=== PATIENT | female | born 1990 | race Caucasian/White ===

== ENCOUNTER 2024-12-25 08:48 | Outpatient (AMB) | payer OTHER, SELFPAY ==
--- NOTE | 2024-12-25 08:50 | A.OFFVIS_ITS ---
Intake Visit Reasons: 6m Allergies diphenhydramine (From Benadryl) Allergy (Unknown, Verified 12/25/24 08:51) Unknown sumatriptan (From Imitrex) Allergy (Unknown, Verified 12/25/24 08:51) Unknown Medication List - Last Reconciled 12/25/24 by Carina Moreno CNP rzlaysxfxa-ruucylnwqmwfa-dqwq 50-325-40 mg 2 tabs PO DAILY PRN naproxen 500 mg PO BID ondansetron mg PO semaglutide (weight loss) (Wegovy) 1 mg subcut QWEEK tranexamic acid 650 mg PO DAILY HPI Comments Details: 34-year-old woman with migraine without aura. She was doing okay. She was getting about 2-3 migraines/month. She was taking butalbital as needed which helped. Sleep was so-so. [facility] Medical History (Updated 12/25/24 @ 08:53 by Carina Moreno CNP) Anxiety Ulnar neuropathy at elbow of right upper extremity Migraine with aura Surgical History (Updated 12/24/24 @ 09:52 by Carina Moreno CNP) S/P cubital tunnel release S/P carpal tunnel release Review of Systems Const Denies chills, Denies daytime sleepiness, Denies difficulty sleeping, Denies fatigue, Denies fever(s), Denies frequent falls, Reports headache(s), Denies increased appetite, Denies poor appetite, Denies snoring, Denies weakness, Denies weight gain and Denies weight loss Eyes Denies loss of vision ENT Denies vertigo, Denies dizziness and Reports headache(s) Card Denies chest pain at rest, Denies chest pain with activity, Denies syncope, Denies leg edema and Denies palpitations Resp Denies snoring GI Denies constipation, Denies heartburn, Denies diarrhea and Denies nausea Denies urinary frequency, Denies urinary incontinence and Denies urinary urgency Musc Denies abnormal gait, Denies numbness and Denies tingling Skin/Breast Denies dry skin and Denies rash Neuro Denies abnormal gait, Denies vertigo, Denies dizziness, Denies syncope, Denies frequent falls, Reports headache(s), Denies lack of coordination, Denies loss of vision, Denies memory loss, Denies numbness, Denies restless legs, Denies seizure-like activity, Denies tingling, Denies paresthesias, Denies tremor(s) and Denies weakness Psych Denies anxiety, Denies depression, Denies auditory hallucinations, Denies memory loss, Denies visual hallucinations and Denies suicidal ideation Endo Denies fatigue and Denies palpitations Physical Exam Const Other: General Appearance:? normal, in no acute distress. Skin:? no rashes, no significant birthmarks. Heart:? S1, S2 normal, no murmurs. Lungs:? clear anteriorly and posteriorly. Extremities:? no edema. Psych:? alert, oriented, cognitive function intact, cooperative with exam. Neuro Other: Mental Status:?Normal attention, orientation, memory and affect.? Cranial Nerves:?Pupils are equal, round and reactive to light. External occular muscles are intact. Visual greenberg are full. Face is symmetrical. Facial sensations are normal. Tongue is midline. Palate elevates symmetrically. Shoulder shrugging is normal. Hearing to bedside conversation is normal. Sensory Exam:?....? Coordination:?No ataxia,?no titubation.? Gait Exam: Within normal limits.? Extrapyramidal System:?No tremor, rigidity with normal facial expressions.? Pronator Drift:?Not present.? Involuntary Movements:?No tremors seen.? Speech:?Normal.? Assessment & Plan Assessment & Plan (1) Migraine without aura: Code(s): G43.009 - Migraine without aura, not intractable, without status migrainosus Category: Medical Qualifiers: Status migrainosus presence: without status migrainosus Intractability: not intractable Qualified Code(s): G43.009 - Migraine without aura, not intractable, without status migrainosus Plan: Continue wnowkmucom-APMB-yaqr 50-325-40mg 2 tablets as needed for headache #10 for 30 days. Plan Meds tried: Imitrex, butalbital, Nurtec (made headaches worse) Coding Level of Care Code Est Pt Level 3 (00307) Diagnoses Migraine without aura and without status migrainosus, not intractable G43.009 Status migrainosus presence: without status migrainosus Intractability: not intractable
--- OUTSIDE RECORDS SUMMARY | 2024-12-25 09:15 | XMS_ITS | Patient Health Record ---
Author Organization [facility] Address [address] [place] [address] Care Team Providers Care Media Executive Name Role Phone JESENIA BLUE Unavailable [phone] Allergies Allergen (clinical drug ingredient) Drug/Non Drug Allergy documented on EMR Reaction Allergy Type Onset Date Status diphenhydramine Benadryl Unknown Drug Allergy A ctive sumatriptan SUMAtriptan Unknown Drug Allergy Act brain meningococcal group B vaccine Meningococcal Group B Vaccine Unknown Drug Allergy Active Reason For Referral No Information Medications Medication SIG (Take, Route, Frequency, Duration) Notes Start Date End Date Status Mounjaro 5 MG/0.5ML 5mg Subcutaneous wee kly; Duration: 30 days 09/30/2022 Active Metoclopramide HCl 5 MG TAKE ONE TABLET BY MOUTH EVERY DAY BEFORE MEALS NEEDED FOR NAUSEA AND VOMITING Oral; Duration: 10 Active Fluconazole 150 MG TAKE 1 TABLET BY STACY TH ONCE A WEEK FOR 12 DOSES Oral; Duration: 28 Active Wegovy 1.7 MG/0.75ML inject 1.7mg Subcut aneous once a week; Duration: 30 days 10/04/2022 Active Mounjaro 2.5 MG/0.5ML 2.5mg Subcutaneous weekly; Duration: 30 days Active Ondansetron 4 MG 1 tablet on the tong ue and allow to dissolve prn nausea Orally Once a day; Duration: 30 day(s) Active Grwpysycwj-EHFH-Ompjtojt 50-325-40 MG TAKE 2 TABLETS BY MOUTH DAILY NEEDED FOR HEADACHE Oral; Duration: 3 Active Cetirizine HCl 10 MG 1 capsule Orally On ce a day Active Social History Tobacco Use: Social History Observation Description Date Details (start date - stop date) Never Smoker NA - NA Tobacco Use/Smoking Question Answer Notes Are you a nonsmoker Alcohol Screen (Audit-C) Question Answer Notes Did you have a drink contain ing alcohol in the past year? Yes How often did you have a dri nk containing alcohol in the past year? Monthly or less (1 point) Points 1 Interpretation Negative Problems Problem Type SNOMED Code ICD Code Onset Dates Problem Status W/U Status Risk Notes Problem Obesity due to excess calories (207868092) Other obesity due to excess calories (E66.09) Active confirmed Problem Body mass index 35.00 to 39.99 ([id number] 05) Body mass index [BMI] 37.0-37.9, adult (Z68.37) Active confirmed Plan Of Treatment No Information Insurance Providers Payer Name Payer Address Payer Phone Subscriber Number Group Number Insured Name Patient Relationship to Insured Coverage Start Date Coverage End Date [employer] [address] [address] [place] [address] [id number] [phone] Silvia Leone Self - patient is the insured Medical (General) History Medical History History ICD Code hypercholesterolemia headache weight gain Surgical History Surgery Date(Month/Year) wisdom teeth extraction vertebroplasty
--- OUTSIDE RECORDS SUMMARY | 2024-12-25 09:16 | XMS_ITS | Clinical Summary ---
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 Medications butalbital-acetami nophen-caffeine 50-300-40 mg capsule Take by mouth. Active LORazepam (ATIVAN) 0.5 mg tablet Take 1 tablet (0.5 mg total) by mouth if needed for anxiety. 4 Active ondansetron (ZOFRAN) 4 mg tablet Take 1-2 Tablets by mouth every 8 hours as needed for Nausea 30 tablet 4 5 Active semaglutide (Wegovy) 1.7 mg/0.75 mL injection penIndications:His tory of obesity Inject 1.7 mg under the skin every 7 (seven) days. 3 mL 5 5 Active ondansetron ODT (ZOFRAN-ODT) 4 mg disintegrating tablet Take 1 tablet (4 mg total) by mouth every 8 (eight) hours if needed for nausea. 30 tablet 4 5 Active naproxen (Naprosyn) 500 mg tablet Take 1 tablet (500 mg total) by mouth 2 (two) times a day if needed for moderate pain. 60 tablet 3 5 09/21/19 26 Active tranexamic acid (Lysteda) 650 mg tablet tablet Take 1 tablet (650 mg total) by mouth 1 (one) time each day. During week of menses 60 tablet 1 5 Active semaglutide (Wegovy) 1 mg/0.5 mL injection penIndications:Cla ss 2 obesity Inject 1 mg under the skin every 7 (seven) days. 2 mL 1 5 Active diclofenac (VOLTAREN) 1 % topical gel Apply 2 g topically 4 (four) times a day if needed (pain). Massage into area QID as needed for pain. Dispense 1 tube. 1 each 1 5 Active Hospital, Clinic, or Other Facility Administered Medication Ordered Dose Route Frequency Start Date End Date Status sodium chloride 0.9 % bolus 1,000 mLIndications:Dehydration 1000 mL IV Once 09/04/2024 Active Active Problems Problem Noted Date Diagnosed Date Macromastia 12/13/2024 Chronic neck and back pain 12/13/2024 Intertrigo 12/13/2024 History of compression fracture of spine 025 Irritable bowel syndrome 08/29/2020 Polyp of gallbladder 10/10/2019 L1 vertebral fracture ([facility] V24, [facility] V28) 08/21/2018 Overview (12/20/2023): Kyphoplasty 05/23/18 Snoring 05/06/2016 Overview (12/20/2023): Home sleep study 04/29/2016 did not show sleep apnea or desats. Chronic headache 10/13/2012 Anxiety 06/22/2012 Overview (12/20/2023): No counseling in the past Neuropathy 06/22/2012 Overview (12/20/2023): Dr. 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; consider type II or in a patient of this age type I 12/24/16 - status post vasovagal event 11/24/16, EEG and MRI normal; migraines, Inderal 60 mg, Fioricet Resolved Problems Problem Noted Date Diagnosed Date Resolved Date Carpal tunnel syndrome, right upper limb 12/26/2023 07/02/2024 Obesity 12/02/2017 07/02/2024 Encounters Date Type Department Care Team Description 12/13/2024 11:00 AM EDT Consult Plastic & Reconstructive Surgery [facility] [address] [address] [place] [id number] Lois Short PA Macromastia (Primary Dx); Chronic neck and back pain; Intertrigo 11/21/2024 3:45 PM EDT Consult [facility] [address] [place] [phone] Aissatou Francisco MD Mastalgia (Primary Dx); Ptosis of both breasts; Weight loss 11/15/2024 11:00 AM EDT Treatment Outpatient [address] [phone] Bea Millan, FORTUNE TELLER Upper back pain (Primary Dx); Neck pain; Chronic bilateral low back pain without sciatica; Large breasts; Chronic pain of both shoulders; Closed fracture of first lumbar vertebra, unspecified fracture morphology, sequela; History of compression fracture of spine 11/13/2024 11:00 AM EDT Treatment Outpatient [facility] - [address] [phone] Bea Millan, FORTUNE TELLER Upper back pain (Primary Dx); Neck pain; Chronic bilateral low back pain without sciatica; Large breasts; Chronic pain of both shoulders 11/09/2024 10:00 AM EDT Treatment Outpatient [address] [phone] Bea Millan, FORTUNE TELLER Upper back pain (Primary Dx); Neck pain; Chronic bilateral low back pain without sciatica; Large breasts; Chronic pain of both shoulders 11/07/2024 3:00 PM EDT Treatment Outpatient [address] [phone] Bea Millan, FORTUNE TELLER Upper back pain (Primary Dx); Neck pain; Chronic bilateral low back pain without sciatica; Large breasts; Chronic pain of both shoulders; Closed fracture of first lumbar vertebra, unspecified fracture morphology, sequela; History of compression fracture of spine 11/02/2024 10:00 AM EDT Treatment Outpatient [address] [phone] Bea Millan, FORTUNE TELLER Upper back pain (Primary Dx); Neck pain; Chronic bilateral low back pain without sciatica; Large breasts; Chronic pain of both shoulders 10/31/2024 2:30 PM EDT Treatment Outpatient [address] [phone] Bea Millan, FORTUNE TELLER Upper back pain (Primary Dx); Neck pain; Chronic bilateral low back pain without sciatica; Large breasts; Chronic pain of both shoulders; Closed fracture of first lumbar vertebra, unspecified fracture morphology, sequela; History of compression fracture of spine 10/29/2024 8:00 AM EDT Ancillary Procedure [facility] - [facility] [address] [facility] [place] [address] [place] [phone] Vasovagal near-syncope; Orthostatic hypotension; Dizziness 10/26/2024 1:30 PM EDT Evaluation Outpatient [facility] - [address] [phone] Carl Martinez, MERCEDEZ Upper back pain; Neck pain; Chronic bilateral low back pain without sciatica; Chronic pain of both shoulders; Closed fracture of first lumbar vertebra, unspecified fracture morphology, sequela; History of compression fracture of spine; Large breasts 10/26/2024 Plan of Care Documentation Outpatient Rehabilitation - [address] [phone] 10/02/2024 3:00 PM EDT - 10/02/2024 11:59 PM EDT Hospital Encounter Radiology Department - [address] [phone] Breast pain, left Discharge Disposition: Home or Self Care 10/02/2024 3:00 PM EDT - 10/02/2024 11:59 PM EDT Hospital Encounter Radiology Department - [address] [phone] Breast pain, left Discharge Disposition: Home or Self Care 10/02/2024 Telephone Adult [address] [phone] Elena Chun MD 10/01/2024 2:45 PM EDT - 10/01/2024 11:59 PM EDT Hospital Encounter Xray - [address] [phone] Chronic bilateral low back pain without sciatica; Closed fracture of first lumbar vertebra, unspecified fracture morphology, sequela; History of compression fracture of spine Discharge Disposition: Home or Self Care 10/01/2024 12:45 PM EDT Office Visit Adult [address] [phone] Nancy Rodriguez PA Breast pain, left (Primary Dx); Large breasts; Upper back pain; Neck pain; Chronic pain of both shoulders; Chronic bilateral low back pain without sciatica; Closed fracture of first lumbar vertebra, unspecified fracture morphology, sequela; History of compression fracture of spine; Vasovagal near-syncope; Orthostatic hypotension; Dizziness from Last 3 Months Immunizations Immunization Administration Dates Next Due Hep B, Unspecified 08/21/2012 Influenza Quadravalent, MDCK , 0.5ml, preservative free (Flucelvax) 6mo and older 12/09/2022,11/03/2021,04/27/2021 Influenza trivalent, 0.5mL, preservative free (Fluarix; FluLaval; Fluzone) ages 6mo and older (Afluria) 3 years and older 03/14/2014 Influenza trivalent, with pr eservative (Fluzone; Afluria) 6mo and older 03/14/2014 JOHNOh My Green!/[employer] SARS-CoV-2 COVID -19, vector-nr, rS-Ad26, preservative free 06/30/2020,06/09/2020 Measles 08/21/2012 Meningococcal MCV4P 03/20/2014 Mumps 08/21/2012 PPD Test 03/20/2014 Pfizer SARS-CoV-2 COVID-19, mRNA, LNP-S, preservative free 06/30/2020,06/09/2020 Rubella 08/21/2012 Tdap Tetanus diptheria acell ular pertussis (Boostrix; Adacel) 7yo and older 02/22/2020,08/21/2012 Varicella live (Varivax) 12mo and older 09/20/19 13,08/22/2012 Zoster Live 08/21/2012 Surgical History Surgery Date Site/Laterality Comments WISDOM TOOTH EXTRACTION PROCEDURE: HISTORICAL WISDOM TEETH EXTRACTION OTHER SURGICAL HISTORY 05/23/2018 PROCEDURE: ---- OTHER ----; COMMENT: Vertebroplasty L1 FIXATION KYPHOPLASTY Medical History Medical History Date Comments Neuropathy 06/22/2012 DX:Neuropathy Anxiety 06/22/2012 DX:Anxiety L1 vertebral fracture (CMS/H CC V24, CMS/HCC V28) 08/21/2018 DX:L1 vertebral fracture (HC C); COMMENT: Kyphoplasty 05/23/18 Irritable bowel syndrome Joint pain Migraine Family History Medical History Relation Name Comments Hypertension Father Coronary artery disease Maternal Grandfather Stroke Paternal Grandfather Diabetes Neg Hx Other cancer Neg Hx Relation Name Status Comments Father Alive HTN Maternal Grandfather Mother Alive Healthy Paternal Grandfather Social History Tobacco Use Types Packs/Day Years Used Date Smoking Tobacco: Never Smokeless Tobacco: Never Tobacco Cessation:Counseling Given: Not Answered Alcohol Use Standard Drinks/Week Comments Yes 0 (1 standard drink = 0.6 oz pur e alcohol) social Interpersonal Safety Answer Date Record ed Physical Abuse Unrecognized value 02/10/2024 Verbal Abuse Unrecognized value 02/10/2024 Comments No Sex and Gender Information Value Date Recorded Sex Assigned at Female 02/06/2024 9:35 AM EST Legal Sex Female 6:26 PM EDT Gender Identity Female 02/06/2024 9:35 AM EST Sexual Orientation Straight 02/06/2024 9: 35 AM EST Obstetrics History Para Term AB IAB SAB Ectopic Multiple Livin g Live Births 0 0 0 0 Last Filed Vital Signs Vital Sign Reading Time Taken Comments Blood Pressure 120/82 12/13/2024 10:53 AM EDT Pulse 96 12/13/2024 10:53 AM EDT Temperature 36.4 C (97.6 F) 11/21/2024 3:53 PM EDT Respiratory Rate 20 09/04/2024 1:05 PM EDT Oxygen Saturation 100% 09/04/2024 1:05 PM EDT Inhaled Oxygen Concentration - - Weight 62.4 kg (137 lb 9.6 oz) 12/13/2024 10:53 AM EDT Height 158.8 cm (5' 2.5 ) 12/13/2024 10:53 AM ED T Body Mass Index 24.77 12/13/2024 10:53 AM EDT Plan of Treatment Scheduled Procedures Name Priority Associated Diagnoses Date/Ti me MAMMOPLASTY REDUCTION Macromastia Chronic neck and back pain Intertrigo Health Maintenance Due Date Last Done Comments Hepatitis B Vaccines (2 of 3 - 19+ 3-dose series) 09/18/2012 08/21/2012 HPV Vaccines (1 - 3-dose SCDM series) 2017 HIV Screening 08/16/2019 Hepatitis C Screening 08/16/2019 Social Influencers of Health Screening 08/16/2019 Depression Screening 02/22/2024 01/06/2023 COVID-19 Vaccine ( season) 2024 06/30/2020, 06/30/2020, 06/09/2020, Additional history exists Influenza Vaccine (#1) 2024 3, 11/03/2021, 04/27/2021, Additional history exists Cervical Cancer Screening: HPV 11/13/2025 11/13/2020 Cholesterol Screening (Lipid Panel) 07/04/2029 07/04/2024, 08/05/2022 DTaP,Tdap,and Td Vaccines (3 - Td or Tdap) 02/21/2030 02/22/2020, 08/21/2012 RSV Immunization Adult Patients (1 - 1-dose 75+ series) 2065 Varicella Vaccines Aged Out 09/19/2012, 08/22/2012 No longer eligible based on patient's age to complete this topic Meningococcal ACWY Vaccine Aged Out 03/20/2014 N o longer eligible based on patient's age to complete this topic HIB Vaccines Aged Out No longer eligi ble based on patient's age to complete this topic Hepatitis A Vaccines Aged Out No long er eligible based on patient's age to complete this topic IPV Vaccines Aged Out No longer eligi ble based on patient's age to complete this topic MMR Vaccines Aged Out No longer eligi ble based on patient's age to complete this topic Meningococcal B Vaccine Aged Out No l onger eligible based on patient's age to complete this topic Pneumococcal Vaccine: Pediatrics (0 to 5 Years) and At-Risk Patients (6 to 49 Years) Aged Out No longer eligible based on patient's age to complete this topic RSV Immunization Patients Under 20 months Aged Out No longer eligible based on patient's age to complete this topic Goals Goal Patient Goal Type Associated Problems Recent Progress Patient-Stated? Author Autogenerat ed Goal Care Plan Autogenerated Problem No Lois Short PA Procedures Procedure Name Priority Date/Time Associated Diagnosis Comments CARDIAC HOLTER MONITOR (REPORT GENERATED IN HOUSE) Routine 10/29/2024 8:05 AM EDT Vasovagal near-syncope Orthostatic hypotension Dizziness US BREAST LIMITED LEFT Routine 10/02/2024 3:28 PM EDT Breast pain, left MG MAMMO DIGITAL DIAGNOSTIC W ABDOULAYE BILAT Routine 10/02/2024 3:16 PM EDT Breast pain, left XR LUMBAR SPINE 4+ VIEWS Routine 10/01/2024 3:02 PM EDT Chronic bilateral low back pain without sciatica Closed fracture of first lumbar vertebra, unspecified fracture morphology, sequela History of compression fracture of spine LIPID PANEL WITH REFLEX TO DIRECT LDL Routine 07/04/2024 8:14 AM EDT History of obesity Mixed hyperlipidemia DEPRESSION SCREENING Routine 01/06/2023 HPV Routine 11/13/2020 from Last 3 Months or Most Recently Relevant to Health Maintenance Results * CARDIAC HOLTER MONITOR (REPORT GENERATED IN HOUSE) (10/29/2024 8:05 AM EDT) Anatomical Region Laterality Modality Cardiac Diagnost ic Narrative 10/30/2024 2:53 PM EDT [facility] DIAGNOSTIC TESTING DEPARTMENT [address] [place] [id number] TEL: FAX: Type of test: 24 hour Holter Monitor Date of test: 10/29/24 Ordering provider: DANNY Tarango Reason for Test: Syncope, Dizziness [facility] Findings: 1: Normal Sinus Rhythm with periods of Sinus Tachycardia. 2: Heart rate range was 71- 138 bpm with an average of 92 bpm. Total time in Sinus Tachycardia was 5 hrs 51 mins. 3: One PAC. No PVCs. 4: No pauses noted. Longest R-R 1.0 sec, 5: Diary returned with episodes of palpitations, lightheadedness, and dizziness noted. EKG at those times showed Sinus Tachycardia at 103- 119 bpm. There was also one episode of palpitations, lightheadedness, and dizziness at 6:30 am with the patient noting felt like I was going to have a vaso vagal attack . EKG at that time showed Normal Sinus Rhythm at 83 bpm. Impression: Normal sinus rhythm with a borderline elevated average heart rate of 92 bpm. No significant arrhythmias and no bradycardia or pauses. Patient's symptoms generally corresponded to sinus tachycardia. us Nancy DELGADO [facility] PROCED URES Final Result * US Breast Limited Left (10/02/2024 3:28 PM EDT) Anatomical Region Laterality Modality Breast Left Ultrasound 10/02/2024 3:19 PM EDT Impressions 10/02/2024 3:41 PM EDT 1. No mammographic evidence of malignancy 2. Heterogeneously dense Findings and recommendations were conveyed to the patient. BI-RADS CATEGORY: 2 - BENIGN RECOMMENDATION: Return to annual mammography. Return to annual mammography. Mammo Location: [facility], [address] [place] [address], [phone], . -------- FINAL REPORT -------- Dictated By: Julito Arce Dictated Date: 10/02/2024 15:19 ET Assigned Physician: Julito Arce Reviewed and Electronically Signed By: Julito Arce Signed Date: 10/02/2024 15:41 ET Workstation ID: [id number] Transcribed By: Self Edit Transcribed Date: 10/02/2024 15:22 ET Narrative 10/02/2024 3:41 PM EDT BILATERALDIGITAL DIAGNOSTIC 3D MAMMOGRAPHY HISTORY: Workup for upper outer left breast pain and workup for lower inner middle depth focal asymmetry seen on today's mammogram. Patient is 33 years old COMPARISON: Baseline Technique: Bilateral CC and MLO full field views. FINDINGS: Left: Lower inner middle depth focal asymmetry corresponds sonographically to typically benign cluster of microcysts. No focal abnormality in area of clinical concern Right: No suspicious masses, microcalcifications or areas of architectural distortion. Typically benign parenchymal asymmetries. BREAST DENSITY: C - The breasts are heterogeneously dense which may obscure small masses. EXAM: LEFT BREAST TARGETED ULTRASOUND EVALUATION HISTORY: Workup for upper outer left breast pain and lower inner focal asymmetry seen on today's mammogram TECHNIQUE: Ultrasonographic examination is performed using a linear array transducer. Targeted left breast ultrasound 12:00 to 3:00 and 9:00 to evaluate mammographic finding. Real-time sonographic scanning was also performed by the radiologist FINDINGS: From 12:00 to 3:00, no sonographic evidence of malignancy or other focal abnormalities were identified at the left breast in area of clinical pain At 9:00, there is a thin-walled typically benign anechoic cluster of microcysts measuring 1.3 x 0.6 x 0.9 cm which corresponds to mammographic finding Procedure Note Julito Arce MD - 10/02/2024 BILATERALDIGITAL DIAGNOSTIC 3D MAMMOGRAPHY HISTORY: Workup for upper outer left breast pain and workup for lowerinner middle depth focal asymmetry seen on today's mammogram. Patient is33 years old COMPARISON: Baseline Technique: Bilateral CC and MLO full field views. FINDINGS: Left: Lower inner middle depth focal asymmetry corresponds sonographically totypically benign cluster of microcysts. No focal abnormality in area of clinical concern Right: No suspicious masses, microcalcifications or areas of architecturaldistortion. Typically benign parenchymal asymmetries. BREAST DENSITY: C - The breasts are heterogeneously dense which mayobscure small masses. EXAM: LEFT BREAST TARGETED ULTRASOUND EVALUATION HISTORY: Workup for upper outer left breast pain and lower inner focalasymmetry seen on today's mammogram TECHNIQUE: Ultrasonographic examination is performed using a linear arraytransducer. Targeted left breast ultrasound 12:00 to 3:00 and 9:00 toevaluate mammographic finding. Real-time sonographic scanning was alsoperformed by the radiologist FINDINGS: From 12:00 to 3:00, no sonographic evidence of malignancy or other focalabnormalities were identified at the left breast in area of clinicalpain At 9:00, there is a thin-walled typically benign anechoic cluster ofmicrocysts measuring 1.3 x 0.6 x 0.9 cm which corresponds to mammographicfinding IMPRESSION: 1. No mammographic evidence of malignancy 2. Heterogeneously dense Findings and recommendations were conveyed to the patient. BI-RADS CATEGORY: 2 - BENIGN RECOMMENDATION: Return to annual mammography. Return to annual mammography. Mammo Location: [facility], [address] [place] [address], [phone], . -------- FINAL REPORT -------- Dictated By: Julito Arce Dictated Date: 10/02/2024 15:19 ET Assigned Physician: Julito Arce Reviewed and Electronically Signed By: Julito Arce Signed Date: 10/02/2024 15:41 ET Workstation ID: [id number] Transcribed By: Self Edit Transcribed Date: 10/02/2024 15:22 ET us Nancy DELGADO IMG US PROCEDURES Final Re sult * MG Mammo Digital Diagnostic w Abdoulaye bilat (10/02/2024 3:16 PM EDT) Anatomical Region Laterality Modality Breast Bilateral Mammography 10/02/2024 3:19 PM EDT Impressions 10/02/2024 3:41 PM EDT 1. No mammographic evidence of malignancy 2. Heterogeneously dense Findings and recommendations were conveyed to the patient. BI-RADS CATEGORY: 2 - BENIGN RECOMMENDATION: Return to annual mammography. Return to annual mammography. Mammo Location: [facility], [address] [place] [address], [phone], . -------- FINAL REPORT -------- Dictated By: Julito Arce Dictated Date: 10/02/2024 15:19 ET Assigned Physician: Julito Arce Reviewed and Electronically Signed By: Julito Arce Signed Date: 10/02/2024 15:41 ET Workstation ID: [id number] Transcribed By: Self Edit Transcribed Date: 10/02/2024 15:22 ET Narrative 10/02/2024 3:41 PM EDT BILATERALDIGITAL DIAGNOSTIC 3D MAMMOGRAPHY HISTORY: Workup for upper outer left breast pain and workup for lower inner middle depth focal asymmetry seen on today's mammogram. Patient is 33 years old COMPARISON: Baseline Technique: Bilateral CC and MLO full field views. FINDINGS: Left: Lower inner middle depth focal asymmetry corresponds sonographically to typically benign cluster of microcysts. No focal abnormality in area of clinical concern Right: No suspicious masses, microcalcifications or areas of architectural distortion. Typically benign parenchymal asymmetries. BREAST DENSITY: C - The breasts are heterogeneously dense which may obscure small masses. EXAM: LEFT BREAST TARGETED ULTRASOUND EVALUATION HISTORY: Workup for upper outer left breast pain and lower inner focal asymmetry seen on today's mammogram TECHNIQUE: Ultrasonographic examination is performed using a linear array transducer. Targeted left breast ultrasound 12:00 to 3:00 and 9:00 to evaluate mammographic finding. Real-time sonographic scanning was also performed by the radiologist FINDINGS: From 12:00 to 3:00, no sonographic evidence of malignancy or other focal abnormalities were identified at the left breast in area of clinical pain At 9:00, there is a thin-walled typically benign anechoic cluster of microcysts measuring 1.3 x 0.6 x 0.9 cm which corresponds to mammographic finding Procedure Note Julito Arce MD - 10/02/2024 BILATERALDIGITAL DIAGNOSTIC 3D MAMMOGRAPHY HISTORY: Workup for upper outer left breast pain and workup for lowerinner middle depth focal asymmetry seen on today's mammogram. Patient is33 years old COMPARISON: Baseline Technique: Bilateral CC and MLO full field views. FINDINGS: Left: Lower inner middle depth focal asymmetry corresponds sonographically totypically benign cluster of microcysts. No focal abnormality in area of clinical concern Right: No suspicious masses, microcalcifications or areas of architecturaldistortion. Typically benign parenchymal asymmetries. BREAST DENSITY: C - The breasts are heterogeneously dense which mayobscure small masses. EXAM: LEFT BREAST TARGETED ULTRASOUND EVALUATION HISTORY: Workup for upper outer left breast pain and lower inner focalasymmetry seen on today's mammogram TECHNIQUE: Ultrasonographic examination is performed using a linear arraytransducer. Targeted left breast ultrasound 12:00 to 3:00 and 9:00 toevaluate mammographic finding. Real-time sonographic scanning was alsoperformed by the radiologist FINDINGS: From 12:00 to 3:00, no sonographic evidence of malignancy or other focalabnormalities were identified at the left breast in area of clinicalpain At 9:00, there is a thin-walled typically benign anechoic cluster ofmicrocysts measuring 1.3 x 0.6 x 0.9 cm which corresponds to mammographicfinding IMPRESSION: 1. No mammographic evidence of malignancy 2. Heterogeneously dense Findings and recommendations were conveyed to the patient. BI-RADS CATEGORY: 2 - BENIGN RECOMMENDATION: Return to annual mammography. Return to annual mammography. Mammo Location: [facility], [address] [place] [address], [phone], . -------- FINAL REPORT -------- Dictated By: Julito Arce Dictated Date: 10/02/2024 15:19 ET Assigned Physician: Julito Arce Reviewed and Electronically Signed By: Julito Arce Signed Date: 10/02/2024 15:41 ET Workstation ID: [id number] Transcribed By: Self Edit Transcribed Date: 10/02/2024 15:22 ET us Nancy DELGADO IMG BI PROCEDURES Final Re sult * XR Lumbar Spine 4+ Views (10/01/2024 3:02 PM EDT) Anatomical Region Laterality Modality Spine, L-spine Radiographic Janie ging 10/02/2024 10:0 4 AM EDT Narrative 10/02/2024 10:06 AM EDT Lumbosacral spine, compression fracture of the L1. Pain. Comparison is prior examination from 12/12/2018. Again noted is some mild compression deformity of the L1 with evidence of vertebroplasty. It is unchanged. Other vertebral bodies are maintained in height. There are small discogenic osteophytes at L2-3 and L3-4 levels. There are hypertrophic changes in the facet joints at L4-5 and L5-S1 levels. There is no significant interval change. CONCLUSIONS: Mild compression deformity with evidence of vertebroplasty at L1 level. Degenerative changes as detailed. -------- FINAL REPORT -------- Dictated By: America Kaye Dictated Date: 10/02/2024 10:04 ET Assigned Physician: America Kaye Reviewed and Electronically Signed By: America Kaye Signed Date: 10/02/2024 10:06 ET Workstation ID: [id number] Transcribed By: Self Edit Transcribed Date: 10/02/2024 10:04 ET Procedure Note America Kaye MD - 10/02/2024 Lumbosacral spine, compression fracture of the L1. Pain. Comparison is prior examination from 12/12/2018. Again noted is some mild compression deformity of the L1 with evidence ofvertebroplasty. It is unchanged. Other vertebral bodies are maintained inheight. There are small discogenic osteophytes at L2-3 and L3-4 levels.There are hypertrophic changes in the facet joints at L4-5 and L5-H9mqxfma. There is no significant interval change. CONCLUSIONS: Mild compression deformity with evidence of vertebroplasty atL1 level. Degenerative changes as detailed. -------- FINAL REPORT -------- Dictated By: America Kaye Dictated Date: 10/02/2024 10:04 ET Assigned Physician: America Kaye Reviewed and Electronically Signed By: America Kaye Signed Date: 10/02/2024 10:06 ET Workstation ID: [id number] Transcribed By: Self Edit Transcribed Date: 10/02/2024 10:04 ET us Nancy DELGADO IMG XR PROCEDURES Final Re sult * (ABNORMAL) Lipid panel with reflex to direct LDL (07/04/2024 8:14 AM EDT) Cholesterol 190 0 - 200 mg/dL LAB CHEMISTRY METHOD 07/04/2024 11:20 AM EDT [facility] Triglycerides 92 0 - 150 mg/dL LAB CHEMISTRY METHOD 07/04/2024 11:20 AM EDT [facility] HDL 51 >=40 mg/dL LAB CHEMISTRY METHOD 07/04/2024 11:20 AM EDT [facility] LDL Calculated 121(H) 0 - 100 mg/dL LAB CHEMISTRY METHOD 07/04/2024 11:20 AM EDT [facility] VLDL Cholesterol Shan 18.4 mg/dL LAB CHEMISTRY METHOD 07/04/2024 11:20 AM EDT [facility] Non HDL Chol. (LDL+VLDL) 139 <145 mg/dL LAB CHEMISTRY METHOD 07/04/2024 11:20 AM EDT [facility] Chol/HDL Ratio 3.7 0.0 - 4.4 LAB CHEMISTRY METHOD 07/04/2024 11:20 AM EDT [facility] Blood Venous blood specimen / Unknown Venipuncture / Unknown 07/04/2024 8:14 AM EDT 07/04/2024 8:14 AM EDT us Carl DELGADO LAB BLOOD ORDERABLES Final Res ult [facility] [address] [place] [address], [place] [phone] * Depression Screening (01/06/2023) Depression Screening Abstracted Historical Provider HEALTH MAINTENANCE Final Result * Cervical Cancer Screening: HPV (11/13/2020) Cervical Cancer Screening: HPV No Interpretation , Abstracted Historical Provider HEALTH MAINTENANCE Final Result from Last 3 Months or Most Recently Relevant to Health Maintenance Additional Health Concerns Active Problems Noted Date Diagnosed Date Autogenerated Problem 12/17/2024 Insurance [employer] DOME[employer]IC Advance Directives * Full Code - Default (Latest Code Status on File) Date Activated Date Inactivated Comments 02/10/2024 7:47 AM 02/10/2024 1:30 PM This is or shantell is used when code status has not been discussed with the patient, or code status is otherwise unknown/unconfirmed To update the patient's code status, place a code status order. Do not modify or discontinue any currently active code status orders. Care Teams Machine Shop Worker Relationship Specialty Start Date End Date Elena Boyd MD [address] [place] [id number] PCP - General 01/06/22
--- OUTSIDE RECORDS SUMMARY | 2024-12-25 09:16 | XMS_ITS ---
Author Name [facility] Organization Unknown Care Team Organization Name Specialty Phone Email Start Date End Da te [facility] Diego Foster Primary Care 06/28/2022 10/10/19 [facility] NULL Primary Care 12/29/2021 10/10/2023
== END 2024-12-25 08:59 | disposition home or self-care (01) ==
LOC: HO.HSM 08:48
PROVIDERS: PCP Internal Medicine; Referring Provider Internal Medicine; Visit Provider Registered Nurse
DX: G43.009 Migraine without aura, not intractable, without status migrainosus (principal)
CPT/HCPCS: 99213

== ENCOUNTER 2025-01-04 10:18 | Outpatient (REF) | payer OTHER, SELFPAY | END 2025-01-04 10:19 | disposition home or self-care (01) | LOC: HO.HPHYSR 10:18 | PROVIDERS: PCP Internal Medicine; Visit Provider Physical Medicine & Rehabilitation | DX: M47.816 Spondylosis without myelopathy or radiculopathy, lumbar region (principal) | CPT/HCPCS: 64493; 64494; J2003; J3301; Q9967 ==

== ENCOUNTER 2025-01-04 10:18 | Outpatient (AMB) | payer OTHER, SELFPAY ==
[2025-01-04 10:24] VITALS: BP 123/77; TEMP 36.6; BMI 24.7
--- NOTE | 2025-01-04 10:24 | A.PHYSOV_ITS ---
Vital Signs 01/04/25 10:24 Height 5 ft 2 in Weight 135 lb BMI 24.7 BP 123/77 Temp 97.9 F Intake Visit Reasons: Bilateral Lumbar Facet Injection L4-L5 L5-S1 Intake Note: Patient is a 34 year old female in office today for Bilateral L4-5 and L5-S1 Facet Injections Allergies diphenhydramine (From Benadryl) Allergy (Unknown, Verified 01/04/25 10:22) Unknown sumatriptan (From Imitrex) Allergy (Unknown, Verified 01/04/25 10:22) Unknown [facility] Medical History (Updated 01/04/25 @ 10:25 by El Ritter DO) Spondylosis of lumbar region without myelopathy or radiculopathy Anxiety Ulnar neuropathy at elbow of right upper extremity Migraine with aura Surgical History (Updated 01/04/25 @ 10:34 by Susan Olmstead MA) History of kyphoplasty (~2018) S/P cubital tunnel release S/P carpal tunnel release Social History (Updated 01/04/25 @ 10:21 by Susan Olmstead MA) Household Members: None Alcohol intake: current Alcohol intake frequency: does not drink Patient Tobacco Use Status: Never used Tobacco Current occupational status: employed Office Procedures Procedure Details: Procedure performed: Bilateral L4-L5, L5-S1 facet joint injections Preop diagnosis: Lumbar facet arthropathy Postop diagnosis: The same After informed consent was obtained, patient was brought into the procedure room and placed in the prone position on the procedure table. Skin over the lumbar sacral area was prepped and draped in the usual sterile manner. The facet joints indicated above were visualized utilizing fluoroscopy. For each joint 3.5 inch 22 gauge spinal needle was introduced percutaneously and advanced to enter the joint space. Needle placement was verified utilizing 0.2 cc of Omnipaque contrast solution. Each joint received total 1.5 cc of therapeutic solution containing 20 mg of of triamcinolone and 2% lidocaine. Radiation exposure was recorded and documented in chart. 64646 Lumbar Facet Inj SINGLE Level- use with FL Gd order: [id number] - Bilateral 79614 Lumbar Facet Inj SECOND Level- use with FL Gd order: [id number] - Bilateral Procedure code (CPT) selection complete Office Meds Kenalog 40 mg/mL suspension for injection Performing Provider: El Ritter DO Performing Location: [facility] Administered by: El Ritter DO on 01/04/25 10:26 Dose Route Admin Location Dispensed Lot Number Expiration Date [facility] Transitional Living Specialist 80 mg intra-articular 2 mL [id number] [place] [facility] Total Dispensed Waste 2 mL 0 % lidocaine (PF) 20 mg/mL (2 %) injection solution Performing Provider: El Ritter DO Performing Location: [facility] Administered by: El Ritter DO on 01/04/25 10:26 Dose Route Admin Location Dispensed Lot Number Expiration Date [facility] Transitional Living Specialist 160 mg intra-articular 10 mL [id number] [facility] Total Dispensed Waste 10 mL 20 % Omnipaque 300 300 mg iodine/mL intravenous solution Performing Provider: lE Ritter DO Performing Location: [facility] Administered by: El Ritter DO on 01/04/25 10:26 Dose Route Admin Location Dispensed Lot Number Expiration Date [facility] Transitional Living Specialist 3 mL intra-articular 10 mL [id number] [place] Total Dispensed Waste 10 mL 70 % Assessment & Plan Assessment & Plan (1) Spondylosis of lumbar region without myelopathy or radiculopathy: Code(s): M47.816 - Spondylosis without myelopathy or radiculopathy, lumbar region Category: Medical Plan Bilateral L4-L5, L5-S1 facet joint injections were performed Orders: Orders FL Gd Lumbar Spine Facet Inj Today M47.816 - Spondylosis without myelopathy or radiculopathy, lumbar region AMB Lumbar Facet Injection Today M47.816 - Spondylosis without myelopathy or radiculopathy, lumbar region Coding Level of Care Code Procedure Only Diagnoses Spondylosis of lumbar region without myelopathy or radiculopathy M47.816 CPT Codes Lumbar Facet Injection - 60240 Thoracic Facet Inj CPT: 97948 - Bilateral ([id number]) Lumbar Facet Injection - 91255 Thoracic Facet Inj CPT: 75647 - Bilateral ([id number])
--- OUTSIDE RECORDS SUMMARY | 2025-01-04 13:05 | XMS_ITS | Clinical Summary ---
Author Organization Patient Business Ser [facility] Address [address] [place] [address] Care Team Providers Care Blend Plant Operator Name Role Phone Elena Boyd MD Primary [...] Polyp of gallbladder 10/10/2019 L1 vertebral fracture ([facility] V24, [facility] V28) 08/21/2018 Overview (12/20/2023): Kyphoplasty 05/23/18 Snoring [...] AM EDT Consult Plastic & Reconstructive Surgery [facility] [address] [facility] [address] [place] [phone] Lois Short PA Macromastia (Primary Dx); Chronic neck and back pain; Intertrigo 11/21/2024 3:45 PM EDT Consult Breast Care Center [facility] [address] [place] [phone] Aissatou Francisco MD Mastalgia (Primary Dx); Ptosis of both breasts; Weight loss 11/15/2024 11:00 AM EDT Treatment Outpatient [address] [phone] Bea Millan, ALPINE GUIDE Upper back pain (Primary Dx); Neck pain; Chronic bilateral low back pain without sciatica; Large breasts; Chronic pain of both shoulders; Closed fracture of first lumbar vertebra, unspecified fracture morphology, sequela; History of compression fracture of spine 11/13/2024 11:00 AM EDT Treatment Outpatient [facility] - [address] [phone] Bea Millan, ALPINE GUIDE Upper back pain (Primary Dx); Neck pain; Chronic bilateral low back pain without sciatica; Large breasts; Chronic pain of both shoulders 11/09/2024 10:00 AM EDT Treatment Outpatient [address] [phone] Bea Millan, ALPINE GUIDE Upper back pain (Primary Dx); Neck pain; Chronic bilateral low back pain without sciatica; Large breasts; Chronic pain of both shoulders 11/07/2024 3:00 PM EDT Treatment Outpatient [address] [phone] Bea Millan, ALPINE GUIDE Upper back pain (Primary Dx); Neck pain; Chronic bilateral low back pain without sciatica; Large breasts; Chronic pain of both shoulders; Closed fracture of first lumbar vertebra, unspecified fracture morphology, sequela; History of compression fracture of spine 11/02/2024 10:00 AM EDT Treatment Outpatient [address] [phone] Bea Millan, ALPINE GUIDE Upper back pain (Primary Dx); Neck pain; Chronic bilateral low back pain without sciatica; Large breasts; Chronic pain of both shoulders 10/31/2024 2:30 PM EDT Treatment Outpatient [address] [phone] Bea Millan, ALPINE GUIDE Upper back pain (Primary Dx); Neck pain; Chronic bilateral low back pain without sciatica; Large breasts; Chronic pain of both shoulders; Closed fracture of first lumbar vertebra, unspecified fracture morphology, sequela; History of compression fracture of spine 10/29/2024 8:00 AM EDT Ancillary Procedure [facility] [address] [facility] Ihsan [address] [place] [phone] Vasovagal near-syncope; Orthostatic hypotension; Dizziness 10/26/2024 1:30 PM EDT Evaluation Outpatient [facility] [address] [phone] Carl Martinez, MERCEDEZ Upper back pain; Neck pain; Chronic bilateral low back pain without sciatica; Chronic pain of both shoulders; Closed fracture of first lumbar vertebra, unspecified fracture morphology, sequela; History of compression fracture of spine; Large breasts 10/26/2024 Plan of Care Documentation Outpatient Rehabilitation - [address] [phone] from Last 3 Months Immunizations Immunization Administration Dates Next Due Hep B, Unspecified 08/21/2012 Influenza Quadravalent, MDCK , 0.5ml, preservative free (Flucelvax) 6mo and older 12/09/2022,11/03/2021,04/27/2021 Influenza trivalent, 0.5mL, preservative free (Fluarix; FluLaval; Fluzone) ages 6mo and older (Afluria) 3 years and older 03/14/2014 Influenza trivalent, with pr eservative (Fluzone; Afluria) 6mo and older 03/14/2014 [employer] SARS-CoV-2 COVID -19, vector-nr, rS-Ad26, preservative free 06/30/2020,06/09/2020 Measles 08/21/2012 Meningococcal MCV4P 03/20/2014 Mumps 08/21/2012 PPD Test 03/20/2014 [employer] SARS-CoV-2 COVID-19, mRNA, LNP-S, preservative free 06/30/2020,06/09/2020 [...] AM EDT Vasovagal near-syncope Orthostatic hypotension Dizziness LIPID PANEL WITH REFLEX TO DIRECT LDL Routine 07/04/2024 8:14 AM EDT History of obesity Mixed hyperlipidemia HM DEPRESSION SCREENING Routine 01/06/2023 HM HPV Routine 11/13/2020 from Last 3 Months or Most Recently Relevant to Health Maintenance Results * CARDIAC HOLTER MONITOR (REPORT GENERATED IN HOUSE) (10/29/2024 8:05 AM EDT) Anatomical Region Laterality Modality Cardiac Diagnost ic Narrative 10/30/2024 2:53 PM EDT [facility]PARTMENT [address] [facility], [address], [place] [address] TEL: FAX: Type of test: 24 hour Holter Monitor Date of test: 10/29/24 Ordering provider: DANNY Tarango Reason for Test: Syncope, Dizziness PVCA Data Abstractor Findings: 1: Normal Sinus Rhythm with periods [...] Patient's symptoms generally corresponded to sinus tachycardia. Nancy DELGADO CV CARDIAC SERVICES PROCED URES Final Result * (ABNORMAL) Lipid panel with reflex to [...] mg/dL LAB CHEMISTRY METHOD 07/04/2024 11:20 AM T [facility] Non HDL Chol. (LDL+VLDL) 139 <145 mg/dL LAB CHEMISTRY METHOD 07/04/2024 11:20 AM EDT [facility] Chol/HDL Ratio 3.7 0.0 - 4.4 LAB CHEMISTRY METHOD 07/04/2024 11:20 AM T [facility] Blood Venous blood specimen / Unknown Venipuncture / Unknown 07/04/2024 8:14 AM EDT 07/04/2024 8:14 AM EDT Carl DELGADO LAB BLOOD ORDERABLES Final Res ult [facility] [address] [place] [address], * Depression Screening (01/06/2023) [facility] Depression Screening Abstracted Historical Provider HEALTH MAINTENANCE Final Result * Cervical Cancer Screening: HPV (11/13/2020) [facility] Cervical Cancer Screening: HPV No Interpretation , [...] currently active code status orders. Care Teams Blend Plant Operator Relationship Specialty Start Date End Date Elena Boyd MD [address] [place] [id number] PCP - General 01/06/22
== END 2025-01-04 10:49 | disposition home or self-care (01) ==
LOC: HO.HPHYS 10:18
PROVIDERS: PCP Internal Medicine; Visit Provider Physical Medicine & Rehabilitation
DX: M47.816 Spondylosis without myelopathy or radiculopathy, lumbar region (principal)
CPT/HCPCS: 64493; 64494

== ENCOUNTER 2025-02-05 12:56 | Outpatient (AMB) | payer OTHER, SELFPAY ==
[2025-02-05 13:02] VITALS: BMI 24.7
--- NOTE | 2025-02-05 13:02 | A.PHYSOV ---
Vital Signs 02/05/25 13:02 Height 5 ft 2 in Weight 135 lb BMI 24.7 Intake Visit Reasons: F/U after injection 01/04/2025 Intake Note: Patient is a 34 year old female in office today for a follow up after Bilateral L4-L5, L5-S1 facet joint injections 01/04/25 Allergies diphenhydramine (From Benadryl) Allergy (Unknown, Verified 01/04/25 10:22) Unknown sumatriptan (From Imitrex) Allergy (Unknown, Verified 01/04/25 10:22) Unknown HPI Comments Details: History of Present Illness The patient is a 34 year old female presenting for a follow-up visit for chronic lower back pain after recent injections. She has a history of chronic lower back pain and previously received lower lumbar facet joint injections on March 07, 2019, which provided excellent benefit. More recently, she underwent bilateral L4-L5 and L5-S1 facet joint injections on January 04, 2025. She reports feeling amazing. She was able to travel to [place] and tolerate plane flight without significant aggravation of her lower back pain. She is very happy with the outcome of the procedure. A lumbar sacral spine MRI from January 01, 2019, revealed a small compression fracture at the L1 level but was otherwise unremarkable. A repeat lumbar sacral spine MRI on October 01, 2024, demonstrated mild degenerative changes in the facet joints. The patient has successfully lost over 100 pounds with the use of semaglutide and engages in daily physician-guided exercises. Since her latest injections, her back has been amazing with no pain, and she was able to do a lot of walking during a recent trip. Pain Description - Location: Lower back. - Current Status: The patient reports she is completely pain-free. - Relieving Factors: Reports excellent benefit and complete pain resolution following bilateral lumbar facet joint injections. Results - Lumbar sacral spine MRI (January 01, 2019): Revealed a small compression fracture at the L1 level and was otherwise unremarkable. - Lumbar sacral spine MRI (October 01, 2024): Showed mild degenerative changes in the facet joints but was otherwise noncontributory. [facility] Medical History Spondylosis of lumbar region without myelopathy or radiculopathy Anxiety Ulnar neuropathy at elbow of right upper extremity Migraine with aura Surgical History History of kyphoplasty (~2019) S/P cubital tunnel release S/P carpal tunnel release Social History Household Members: None Alcohol intake: current Alcohol intake frequency: does not drink Patient Tobacco Use Status: Never used Tobacco Current occupational status: employed Review of Systems Narrative Review of Systems - Musculoskeletal: Denies any current back pain. Denies change in bowel bladder habits. Denies any fever or chills. Denies uncontrolled depression or suicidal ideation Physical Exam Exam Exam: Physical Exam Patient appears to be in no acute distress. Appropriately conversant oriented. Ambulated without antalgia. Lumbar range of motion was preserved. She was able to perform heel walk and toe walk. Neurological examination was nonfocal. Vital Signs: BMI result Body Mass Index 24.7 Assessment & Plan Assessment & Plan (1) Spondylosis of lumbar region without myelopathy or radiculopathy: Code(s): M47.816 - Spondylosis without myelopathy or radiculopathy, lumbar region Category: Medical Plan Pain Management - Analgesia: The patient reports her pain is completely resolved following recent lumbar facet joint injections. - Activities of Daily Living: Function is excellent; she recently traveled and did a lot of walking without issue. - Adverse Effects: No adverse effects were reported from her treatments. - Affect: The patient reports feeling amazing and is very pleased with the outcome. - Aberrant Drug Related Behaviors: No aberrant behaviors were noted or discussed. Plan Patient was informed and verbally consented to the use of an ambient scribe for clinic note documentation during this visit. 1. Chronic Lower Back Pain The patient has had an excellent response to bilateral L4-L5 and L5-S1 facet joint injections, reporting complete resolution of her pain. Given her current pain-free status, no further interventions are required at this time. She is advised to continue with her daily exercises and turmeric supplementation. Follow-up will be on an as-needed basis if her pain returns. Discussion Notes I confirmed with the patient that her back pain has completely resolved since her recent injections, and she is feeling amazing. I informed her that no further treatment is necessary at this time. Regarding the duration of effect from the injections, I explained that achieving three months of relief is a good outcome, with any duration beyond that being a bonus. I expressed optimism that due to her younger age and the absence of severe arthritis, the relief may last for a significant time. I recommended she continue her daily exercises and turmeric. We will not schedule a routine follow-up; she will call if she needs another appointment. Patient Instructions - You are feeling much better and have no back pain after your recent injections. - Continue with your daily exercises and taking turmeric as discussed. - No follow-up appointment is needed at this time. - Please call our office if your back pain returns. Coding Level of Care Code Est Pt Level 3 (15932) Add On Problem Visit Only Diagnoses Spondylosis of lumbar region without myelopathy or radiculopathy M47.816
--- OUTSIDE RECORDS SUMMARY | 2025-02-05 16:50 | XMS_ITS | Encounter Summary ---
Author Organization [facility] Prior to 12/23/2023 Address [address] [place] [address] Care Team Providers Care Business Process Engineer Name Role Phone Piter Boyd MD Primary Care Provider [phone] Reason for Referral * EXTERNAL (Priority) - Authorized/Booked Specialty Diagnoses / Procedures Referred By Devika [email or web address] Referred To Contact Dermatology Procedures REFERRAL TO DERMATOLOGY Piter Boyd MD [address], [place] Patrice Savage MD [address] [place] [address] [place] [address] Referral ID Status Reason Start Date Expiration Date V isits Requested Visits Authorized [id number] Authorized/B ooked 02/10/2023 02/10/2024 1 1 Encounter Details Date Type Department Care Team Description 02/10/2023 Orders Only Adult Medicine - [place] [address], [place] [phone] Piter Boyd MD [address], [place] Social History Tobacco Use Types Packs/Day Years Used Date Smoking Tobacco: Never Smokeless Tobacco: Never Alcohol Use Standard Drinks/Week Comments Yes 0 (1 standard drink = 0.6 oz pur e alcohol) one on occ Sex Assigned at Date Recorded Not on file Job Start Date Occupation Industry Not on file Not on file Not on file documented as of this encounter Plan of Treatment Not on file documented as of this encounter Visit Diagnoses Not on filedocumented in this encounter Care Teams Business Process Engineer Relationship Specialty Start Date End Date Piter Boyd MD [address] [place] [id number] PCP - General Internal Medicine 01/06/22 documented as of this encounter
--- OUTSIDE RECORDS SUMMARY | 2025-02-05 16:50 | XMS_ITS | Encounter Summary ---
Author Organization [facility] Prior to 12/23/2023 Address [address] [place] [address] Care Team Providers Care Flavoring Machine Operator Name Role Pipe Line WalkerBenitez Loo MD Primary Care Provider Gris Vora MD Primary Care Provider Verna Boyce MD Primary Care Provider Aries Boyd Ch MD Primary Care Provider [phone] Encounter Details Date Type Department Care Team Description 11/29/2016 [facility] Medical Records [address] [place] [id number] Rojas Garcia MD Social History Tobacco Use Types Packs/Day Years [...] on filedocumented in this encounter Care Teams Flavoring Machine Operator Relationship Specialty Start Date End Date Benitez Loo MD PCP - General Internal Medicine 06/13/12 11/08/19 Gris Castillo MD PCP - General Internal Medicine 11/09/19 1 Verna Joseph MD PCP - General Family Practice 01/26/21 01/05/22 Piter Boyd MD [address] [place] [address] PCP - General Internal Medicine 01/06/22 documented as of this encounter
--- OUTSIDE RECORDS SUMMARY | 2025-02-05 16:50 | XMS_ITS | Clinical Summary ---
Author Organization [facility] Prior to 12/23/2023 Address [address] [place] [address] Care Team Providers Care Set Designer Name Role Phone Piter Boyd MD Primary Care Provider [phone] [phone] Allergies Active Allergy Reactions Severity Noted Date Comments Benadryl Allergy Rash/Dermatitis Medium 08/09/2016 Sumatriptan Succinate Numbness, tingling or swelling of the lips, tongue or mouth High 10/06/2012 Also chest pain and palpitations. Meningococcal Vaccines Rash/Dermatitis 03/22/19 15 Medications Medication Sig Dispensed Refills Start Date End Date Status [id number] E 50-300-40 MG OR CAPS 50-300-40 MG Cap Take by mouth. 0 Acti ve Fluticasone Furoate-Vilanterol (Breo Ellipta) 100-25 MCG/ACT AEROSOL POWDER,BREATH ACTIVATED Inhale 1 Puff into the lungs daily. 1 Each 0 04/27/2023 Active ALBUTEROL SULFATE (ProAir HFA) 108 (90 Base) MCG/ACT Aero Soln Inhale 2 Puffs into the lungs 4 times daily as needed for Cough or Wheezing. 8.5 g 2 04/27/2023 Active fluconazole (DIFLUCAN) 150 MG tablet TAKE ONE TABLET ONE DOSE. MAY REPEAT ONCE 0 04/27/2023 Active lorazepam (Ativan) 0.5 MG tablet Take 1 Tablet by mouth every 6 hours as needed for Anxiety for up to 7 days. 20 Tablet 0 09/19/2023 Active ondansetron (Zofran) 4 MG tablet Take 1-2 Tablets by mouth every 8 hours as needed for Nausea. 30 Tablet 1 10/17/2023 Active Semaglutide-Weight Management 1 MG/0.5ML Solution Auto-injector Inject 1 mg into the skin once a week. 2 mL 3 12/13/2023 Active ondansetron (ZOFRAN-ODT) 4 MG disintegrating tablet Take 1 Tablet by mouth every 8 hours as needed for Nausea. 30 Tablet 3 12/13/2023 Active Active Problems Problem Noted Date Class 2 obesity 03/16/2021 Irritable bowel syndrome 08/29/2020 Polyp of gallbladder 10/10/2019 L1 vertebral fracture 08/21/2018 Overview: Kyphoplasty 05/23/18 Obesity 12/02/2017 Snoring 05/06/2016 Overview: Home sleep study 04/29/2016 did not show sleep apnea or desats. Chronic headache 10/13/2012 Neuropathy 06/22/2012 Overview: Dr. 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; consider type II or in a patient of this age type I 12/24/16 - status post vasovagal event 11/24/16, EEG and MRI normal; migraines, Inderal 60 mg, Fioricet Anxiety 06/22/2012 Overview: No counseling in the past Immunizations Name Administration Dates Next Due COVID-19 (Pfizer) 06/30/2020,06/09/2020 Hepatitis N-Jehzu-Cbzcqhjm + 08/21/2012 Influenza (> 6 Months) 03/14/2014 Influenza Vaccine-preservati ve Free-quadrivalent 4 Years 11/03/2021 Zkdtcff-Gmnkf-Nzbroyfd + 08/21/2012 Meningococcal (Menactra) 03/20/2014 Jjjlo-Lzsnk-Lppeikoe + 08/21/2012 PPD-RBMG 03/20/2014 Zukpilq-Jcfit-Vlvkopva + 08/21/2012 Tdap 02/22/2020,08/21/2012 Varicella 09/19/2012,08/22/2012 Varicella Titre Negative - 08/21/2012 Family History Medical History Relation Name Comments Hypertension Father CAD Maternal Grandfather Stroke Paternal Grandfather Cancer, Other Negative Hx Diabetes Negative Hx Relation Name Status Comments Father Alive [...] file Not on file Not on file Last Filed Vital Signs Vital Sign Reading Time Taken Comments Blood Pressure 108/82 09/19/2023 11:22 AM EDT Pulse 81 09/19/2023 11:22 AM EDT Temperature 36.2 C (97.1 F) 09/19/2023 11:22 AM EDT Respiratory Rate 16 11/03/2021 1:38 PM EDT Oxygen Saturation 98% 09/26/2020 3:05 PM EDT Inhaled Oxygen Concentration - - Weight 76.7 kg (169 lb) 12/22/2023 9:32 AM EDT Height 157.5 cm (5' 2 ) 12/22/2023 9:32 AM EDT Body Mass Index 30.91 12/22/2023 9:32 AM EDT Plan of Treatment Health Maintenance Due Date Last Done Comments CERVICAL CANCER SCREENING 11/14/20232020, 03/24/2016 (External Completion of test per patient (Patient reports normal results)), 03/24/2011 (External Completion of test per patient (Patient reports normal results)) BMI CHECK/ADVISE 02/22/2024 09/19/2023, 11/2023, 05/30/2023, Additional history exists DEPRESSION SCREENING/FOLLOWUP 02/22/2024 (Completed), 04/21/2021, 10/13/2020, Additional history exists SOCIAL NEEDS SCREENING 02/22/2024 01/07/2023 (Comple alyson) Covid-19 Vaccine (2022- 4 season) 2024 06/30/2020, 06/09/2020 INFLUENZA (#1) 2024 11/03/2021, 03/14/2014 CHOLESTEROL SCREENING 08/06/2027 08/05/2022 , 01/07/2022, 04/30/2019, Additional history exists BASELINE HEALTH EXAM 18-39 01/08/202801/07, 01/07/2022, 01/06/2022, Additional history exists DTAP/TDAP/TD (3 - Td or Tdap) 02/21/2030 02/22/2020, 08/21/2012 PNEUMOCOCCAL VACCINE FOR HIG H RISK PATIENTS (#1) 11/24/2055 Care Teams Set Designer Relationship Specialty Start Date End Date Piter Boyd, [address] [place] [address] PCP - General Internal Medicine 01/06/22
--- OUTSIDE RECORDS SUMMARY | 2025-02-05 16:50 | XMS_ITS | Encounter Summary ---
Author Organization [facility] Prior to 12/23/2023 Address [address] [place] [address] Care Team Providers Care Solution Design Engineer Name Role Inventory ClerkBenitez Loo MD Primary Care Provider Gris Vora MD Primary Care Provider Verna Boyce MD Primary Care Provider Aries Boyd Ch MD Primary Care Provider [phone] [phone] Encounter Details Date Type Department Care Team Description 02/27/2014 Release of Information Medical Records [address] [place] [id number] Abstract, Provider Social History Tobacco Use Types Packs/Day Years Used Date Smoking Tobacco: Never Alcohol Use Standard Drinks/Week Comments Yes 0 (1 standard drink = 0.6 oz pur e alcohol) Sex Assigned at Date Recorded Not on file Job Start Date Occupation Industry Not on file Not on file Not on file documented as of this encounter Plan of Treatment Not on file documented as of this encounter Visit Diagnoses Not on filedocumented in this encounter Care Teams Solution Design Engineer Relationship Specialty Start Date End Date Benitez Loo MD PCP - General Internal Medicine 06/13/12 11/08/19 Gris Castillo MD PCP - General Internal Medicine 11/09/19 1 Verna Joseph MD PCP - General Family Practice 01/26/21 01/05/22 Piter Boyd MD [address] [place] [address] PCP - General Internal Medicine 01/06/22 documented as of this encounter
--- OUTSIDE RECORDS SUMMARY | 2025-02-05 16:50 | XMS_ITS | Encounter Summary ---
Author Organization [facility] Prior to 12/23/2023 Address [address] [place] [address] Care Team Providers Care Edge Burnisher Uppers Name Role Phone Gris Castillo MD Primary Care Provider Verna Boyce MD Primary Care Provider Aries Boyd Primary Care Provider [phone] Encounter Details Date Type Department Care Team Description 10/06/2020 Pt. Non Urgent Medical Question Medicine/Pediatrics - [address] [address] Gris Castillo MD Social History Tobacco Use Types Packs/Day Years Used Date Smoking Tobacco: Never Smokeless Tobacco: Never Alcohol Use Standard Drinks/Week Comments Yes 0 (1 standard drink = 0.6 oz pur e alcohol) one on occ Sex Assigned at Date Recorded Not on file Job Start Date Occupation Industry Not on file Not on file Not on file COVID-19 Exposure Response Date Recorded In the last month, have you been in contact with someone who was confirmed or suspected to have Coronavirus / COVID-19? No / Unsure 10/06/2020 8:10 AM EDT documented as of this encounter Miscellaneous Notes * Telephone Encounter - Anamaria Rivas M.A. - 10/06/2020 4:13 PM EDTFrom: Silvia Leone To: Daniel Castillo Sent: 10/06/2020 4:11 PM EDT Subject: Neurology Hello, i know I???m on a waiting list to see a new neurologist. I was looking through my previous medical records and i saw a neurologist in the past he was great. Only reason why i stopped seeing him was because of a change in insurance. I???m not sure if i can be able to see him. He???s in the [facility] [place] his name is Dr. Garcia. documented in this encounter Plan of Treatment Not on file documented as of this encounter Visit Diagnoses Not on filedocumented in this encounter Care Teams Edge Burnisher Uppers Relationship Specialty Start Date End Date Gris Castillo MD PCP - General Internal Medicine 11/09/19 1 Verna Joseph MD PCP - General Family Practice 01/26/21 01/05/22 Piter Boyd MD [facility] [place] [address] PCP - General Internal Medicine 01/06/22 documented as of this encounter
--- OUTSIDE RECORDS SUMMARY | 2025-02-05 16:50 | XMS_ITS | Encounter Summary ---
Author Organization [facility] Prior to 12/23/2023 Address [address] [place] [address] Care Team Providers Care Platen Drier Operator Name Role Phone Piter Boyd MD Primary Care Provider [phone] Encounter Details Date Type Department Care Team Description 09/27/2022 Orders Only Lab - [place] [address] [place], [place] [id number] Piter Boyd, [address] [place] [address] Diarrhea of presumed infectious origin (Primary Dx) Social History Tobacco Use Types Packs/Day Years [...] on file documented as of this encounter Results * CHG IAAD IA CLOSTRIDIUM DIFFICILE TOXIN (09/27/2022 9:33 AM EDT) Stool (Unknown) 09/27/2022 9 :33 AM EDT 09/27/2022 9:33 AM EDT Narrative [facility] - 09/27/2022 12:16 PM EDT Release to patient->Immediate C. DIFFICILE TOXIN PANEL NOT PERFORMED. SPECIMEN DOES NOT MEET CRITERIA FOR TESTING. REASON: FORMED SPECIMEN PLEASE CONTACT INFECTION CONTROL IF ADDITIONAL INFORMATION IS REQUIRED. C. DIFFICILE TOXIN PANEL NOT PERFORMED. SPECIMEN DOES NOT MEET CRITERIA FOR TESTING. REASON: FORMED SPECIMEN PLEASE CONTACT INFECTION CONTROL IF ADDITIONAL INFORMATION IS REQUIRED. TNP Piter Boyd MD LAB Performing Organization Address [facility] Co de Phone Number [facility] * GIARDIA AG, STOOL (09/27/2022 9:33 AM EDT) Stool (Unknown) 09/27/2022 9 :33 AM EDT 09/27/2022 9:33 AM EDT [facility]ative [facility] 09/27/2022 12:35 PM EDT Release to patient->Immediate NEGATIVE FOR GIARDIA LAMBLIA ANTIGEN Piter Boyd MD LAB Performing Organization Address [facility] de Phone Number [facility] documented in this encounter Visit Diagnoses Diagnosis Diarrhea of presumed infectious origin- Primary documented in this encounter Care Teams Platen Drier Operator Relationship Specialty Start Date End Date Piter Boyd MD [address] [place] [address] PCP - General Internal Medicine 01/06/22 documented as of this encounter
--- OUTSIDE RECORDS SUMMARY | 2025-02-05 16:50 | XMS_ITS | Encounter Summary ---
Author Organization [facility] Prior to 12/23/2023 Address [address] [place] [address] Care Team Providers Care Gaming Cage Cashier Name Role Phone Piter Boyd MD Primary Care Provider [phone] [phone] Encounter Details Date Type Department Care Team Description 04/27/2023 Orders Only Adult Medicine - [place] [address] [place] [address] Piter Boyd MD [address] [place] [address] Social History Tobacco Use Types Packs/Day Years [...] on filedocumented in this encounter Care Teams Gaming Cage Cashier Relationship Specialty Start Date End Date Piter Boyd MD [address] [place] [address] PCP - General Internal Medicine 01/06/22 documented as of this encounter
--- OUTSIDE RECORDS SUMMARY | 2025-02-05 16:50 | XMS_ITS | Encounter Summary ---
Author Organization [facility] Prior to 12/23/2023 Address [address] [place] [address] Care Team Providers Care Medical Care Evaluation Specialist Name Role Gold Miner BlastingBenitez Loo MD Primary Care Provider [facility] Maciel MD Primary Care Provider Verna Boyce MD Primary Care Provider Aries Boyd Ch MD Primary Care Provider [phone] [phone] Encounter Details Date Type Department Care Team Description 11/06/2018 Finisher Polisher Report Medical Records [address] [place] [address] [facility] Social History Tobacco Use Types Packs/Day Years [...] on filedocumented in this encounter Care Teams Medical Care Evaluation Specialist Relationship Specialty Start Date End Date Benitez Loo MD PCP - General Internal Medicine 06/13/12 11/08/19 Gris Castillo MD PCP - General Internal Medicine 11/09/19 1 Verna Joseph MD PCP - General Family Practice 01/26/21 01/05/22 Piter Boyd MD [address] [place] [address] PCP - General Internal Medicine 01/06/22 documented as of this encounter
--- OUTSIDE RECORDS SUMMARY | 2025-02-05 16:50 | XMS_ITS | Encounter Summary ---
Author Organization [facility] Prior to 12/23/2023 Address [address] [place] [address] Care Team Providers Care Gold Assayer Name Role Motorcoach DriverBenitez Loo MD Primary Care Provider Gris Vora MD Primary Care Provider Verna Boyce MD Primary Care Provider Aries Boyd Ch MD Primary Care Provider [phone] Encounter Details Date Type Department Care Team Description 12/24/2016 Treating And Pumping Supervisor Report Medical Records [address] [place] [address] Rojas Garcia MD Social History Tobacco Use [...] on filedocumented in this encounter Care Teams Gold Assayer Relationship Specialty Start Date End Date Benitez Loo MD PCP - General Internal Medicine 06/13/12 11/08/19 Gris Castillo MD PCP - General Internal Medicine 11/09/19 1 Verna Joseph MD PCP - General Family Practice 01/26/21 01/05/22 Piter Boyd, [address] [place] [address] [place] [address] PCP - General Internal Medicine 01/06/22 documented as of this encounter
--- OUTSIDE RECORDS SUMMARY | 2025-02-05 16:50 | XMS_ITS | Encounter Summary ---
Author Organization [facility] Prior to 12/23/2023 Address [address] [place] [address] Care Team Providers Care Senior Java Ui Developer Name Role Revenue Enforcement AgentBenitez Loo MD Primary Care Provider Gris Vora MD Primary Care Provider Verna Boyce MD Primary Care Provider Aries Boyd Ch MD Primary Care Provider [phone] [phone] Encounter Details Date Type Department Care Team Description 07/26/2016 Water Control Station Engineer Report Medical Records [address] [place] [address] Nicole Hassan Social History Tobacco Use Types Packs/Day Years [...] on filedocumented in this encounter Care Teams Senior Java Ui Developer Relationship Specialty Start Date End Date Benitez Loo MD PCP - General Internal Medicine 06/13/12 11/08/19 Gris Castillo MD PCP - General Internal Medicine 11/09/19 1 Verna Joseph MD PCP - General Family Practice 01/26/21 01/05/22 Piter Boyd MD [address] [place] [address] [place] [address] PCP - General Internal Medicine 01/06/22 documented as of this encounter"
--- OUTSIDE RECORDS SUMMARY | 2025-02-05 16:50 | XMS_ITS | Encounter Summary ---
Author Organization [facility] Prior to 12/23/2023 Address [address] [place] [address] Care Team Providers Care Automotive Product Engineer Name Role Phone Piter Boyd MD Primary Care Provider [phone] [phone] Reason for Visit * Reason Onset Date Comments medication problems 04/27/2023 [facility]ed [facility] [place] [place] Spoke to [place] [employer] and cancelled the Amoxicillin, Diflucan, and Albuterol, also the Breoelipa which is out of stock there anyway. Encounter Details Date Type Department Care Team Description 04/27/2023 Telephone Adult Medicine - [place] [address] [place] [address] Piter Boyd MD [address] [place] [address] medication problems ([facility]ed [facility] [place] [place] Spoke to [place] and cancelled the Amoxicillin, Diflucan, and Albuterol, also the Breoelipa which is out of stock there anyway.) Social History Tobacco Use Types Packs/Day Years [...] on filedocumented in this encounter Care Teams Automotive Product Engineer Relationship Specialty Start Date End Date Piter Boyd MD [address] [place] [address] PCP - General Internal Medicine 01/06/22 documented as of this encounter
--- OUTSIDE RECORDS SUMMARY | 2025-02-05 16:50 | XMS_ITS | Encounter Summary ---
Author Organization [facility] Prior to 12/23/2023 Address [address] [place] [address] Care Team Providers Care Real Estate Representative Name Role Phone Verna Joseph MD Primary Care Provider Aries Boyd Ch MD Primary Care Provider [phone] [phone] Reason for Visit * Reason Onset Date Comments Prior Authorization 12/09/2021 nystatin (MY COSTATIN) cream Encounter Details Date Type Department Care Team Description 12/09/2021 Telephone OBGYN - [place] [address] [place] [address] [place], [facility] [address] [place] [address] Prior Authorization (/nystatin (MYCOSTATIN) cream) Social History Tobacco Use Types Packs/Day Years [...] Exposure Response Date Recorded In the last 10 days, have yo u been in contact with someone who was confirmed or suspected to have Coronavirus/COVID-19? No / Unsure 11/17/2021 9:12 AM EDT documented as of this encounter Miscellaneous Notes * Telephone Encounter - Ava Benito M.A. - 01/29/2022 2:36 PM EST SEEN ON 01/06/22 WITH PROVIDER WITH NO FURTHER MENTION OF MED AUTH [email or web address] * Telephone Encounter - Lanny Doran M.A. - 12/15/2021 8:45 AM EDT Need to call [place], Cover my meds unable to find eligibilty for this pt. * Telephone Encounter - Lanny Doran M.A. - 12/09/2021 2:12 PM EDT Prior authorization for the nystatin ointment was completed today on cover my meds Dx Rash * Telephone Encounter - Carina Florez - 12/09/2021 10:27 AM EDT Prior Authorization for Medication-do not complete and send this encounter unless you have the fax from the pharmacy. Is this a Cover My Meds request: Yes -- Dsouza Code [id number] Name of Medication nystatin (MYCOSTATIN) cream Dose of Medication [id number] Unit How does patient take this med? Sig: Apply to affected area 3-4x/day What Pharmacy did the fax come from: [facility] Pharmacy fax #: [phone] [employer] Party Information from fax: What Prescription Plan does the patient have? NA BIN/PCN if applicable: Cardholder ID:[id number] Person Code: 01 Relationship Code: Help desk phone: documented in this encounter Plan of Treatment Not on file documented as of this encounter Visit Diagnoses Not on filedocumented in this encounter Care Teams Real Estate Representative Relationship Specialty Start Date End Date Verna Joseph MD PCP - General Family Practice 01/26/21 01/05/22 Piter Boyd, [address] [place] [address] [place] [address] PCP - General Internal Medicine 01/06/22 documented as of this encounter
--- OUTSIDE RECORDS SUMMARY | 2025-02-05 16:50 | XMS_ITS | Encounter Summary ---
Author Organization [facility] Prior to 12/23/2023 Address [address] [place] [address] Care Team Providers Care Fire Supervisor Name Role Phone Piter Boyd MD Primary Care Provider [phone] [phone] Encounter Details Date Type Department Care Team Description 04/07/2023 Orders Only Lab - [place] [address] [place] [address] Olinda Joshua NP Social History Tobacco Use Types Packs/Day Years [...] on filedocumented in this encounter Care Teams Fire Supervisor Relationship Specialty Start Date End Date Piter Boyd MD [address] [place] [address] PCP - General Internal Medicine 01/06/22 documented as of this encounter
--- OUTSIDE RECORDS SUMMARY | 2025-02-05 16:50 | XMS_ITS | Encounter Summary ---
Author Organization [facility] Prior to 12/23/2023 Address [address] [place] [address] Care Team Providers Care Vocational Nurse Name Role Environmental Compliance ManagerBenitez Loo MD Primary Care Provider Gris Vora MD Primary Care Provider Verna Boyce MD Primary Care Provider Aries Boyd Ch MD Primary Care Provider [phone] [phone] Encounter Details Date Type Department Care Team Description 09/01/2016 Nutrition And Dietetics Instructor Report Medical Records [address] [place] [address] Nicole Hassan Social History Tobacco Use Types [...] on filedocumented in this encounter Care Teams Vocational Nurse Relationship Specialty Start Date End Date Benitez Loo MD PCP - General Internal Medicine 06/13/12 11/08/19 Gris Castillo MD PCP - General Internal Medicine 11/09/19 1 Verna Joseph MD PCP - General Family Practice 01/26/21 01/05/22 Piter Boyd MD [address] [place] [address] [place] [address] PCP - General Internal Medicine 01/06/22 documented as of this encounter
--- OUTSIDE RECORDS SUMMARY | 2025-02-05 16:50 | XMS_ITS | Encounter Summary ---
Author Organization [facility] Prior to 12/23/2023 Address [address] [place] [address] Care Team Providers Care Spline Rolling Machine Job Setter Name Role Phone Piter Boyd MD Primary Care Provider [phone] Reason for Referral * EXTERNAL (Routine) - Authorized/Booked Specialty Diagnoses / Procedures Referred By Devika [email or web address] Referred To Contact Podiatry Procedures REFERRAL TO PODIATRY (OUT OF NETWORK) Piter Boyd MD [address] [place], [place] Rommel Joseph DPM [address] [place] [address] Referral ID Status Reason Start Date Expiration Date V isits Requested Visits Authorized [id number] Authorized/B ooked 06/02/2022 09/01/2022 1 1 Encounter Details Date Type Department Care Team Description 06/02/2022 Orders Only Adult Medicine - [place] [address] [place], [place] [phone] Piter Boyd MD [address] [place], [place] Social History Tobacco Use Types Packs/Day [...] on filedocumented in this encounter Care Teams Spline Rolling Machine Job Setter Relationship Specialty Start Date End Date Piter Boyd MD [address] [place] [address] PCP - General Internal Medicine 01/06/22 documented as of this encounter
--- OUTSIDE RECORDS SUMMARY | 2025-02-05 16:50 | XMS_ITS | Encounter Summary ---
Author Organization [facility] Prior to 12/23/2023 Address [address] [place] [address] Care Team Providers Care Roller Embosser Name Role Fruit PitterBenitez Loo MD Primary Care Provider Gris Vora MD Primary Care Provider Verna Boyce MD Primary Care Provider Aries Boyd Ch MD Primary Care Provider [phone] Reason for Visit * Reason Onset Date Comments Advice 01/24/2017 Encounter Details Date Type Department Care Team Description 01/24/2017 Pt. Non Urgent Medical Question Medicine/Pediatrics - [address] [address] Benitez Loo MD Social History Tobacco Use Types Packs/Day Years Used Date Smoking Tobacco: Never Smokeless Tobacco: Never Alcohol Use Standard Drinks/Week Comments Yes 0 (1 standard drink = 0.6 oz pur e alcohol) Sex Assigned at Date Recorded Not on file Job Start Date Occupation Industry Not on file Not on file Not on file documented as of this encounter Progress Notes * Adrianna Steele L.P.N. - 01/24/2017 7:56 AM ESTFrom: Silvia Leone To: Benitez Loo MD Sent: 01/24/2017 7:46 AM EST Subject: Silvia Zaragoza, over the past few days i have noticed an athletes foot outbreak on my foot. I???ve been using over the counter cream but it???s not helping. It???s time to actually get prescription medicationfor this. If i can avoid coming in and have someone fill out a prescription for me that would be great. documented in this encounter Plan of Treatment Not on file documented as of this encounter Visit Diagnoses Not on filedocumented in this encounter Care Teams Roller Embosser Relationship Specialty Start Date End Date Benitez Loo MD PCP - General Internal Medicine 06/13/12 11/08/19 Gris Castillo MD PCP - General Internal Medicine 11/09/19 1 Verna Joseph MD PCP - General Family Practice 01/26/21 01/05/22 Piter Boyd MD [facility] [place] [address] PCP - General Internal Medicine 01/06/22 documented as of this encounter
--- OUTSIDE RECORDS SUMMARY | 2025-02-05 16:50 | XMS_ITS | Encounter Summary ---
Author Organization [facility] Prior to 12/23/2023 Address [address] [place] [address] Care Team Providers Care Forming Tube Selector Name Role Phone Gris Castillo MD Primary Care Provider Verna Boyce MD Primary Care Provider Aries Boyd Primary Care Provider [phone] [phone] Encounter Details Date Type Department Care Team Description 12/10/2020 Pt. Non Urgent Medical Question Medicine/Pediatrics - [address] [address] Gris Castillo MD Social History Tobacco Use [...] have Coronavirus / COVID-19? No / Unsure 11/13/2020 11:03 AM EDT documented as of this encounter Miscellaneous Notes * Telephone Encounter - America Miguel M.A. - 12/10/2020 10:46 AM EDTFrom: Silvia Leone To: Daniel Castillo Sent: 12/10/2020 10:44 AM EDT Subject: Neuro Referal Meri Zaragoza not sure who to exactly contact but i was sent a neuro consult and i completely forgot which doctor and the location? is that something you could help with or send me in the right location? documented in this encounter Plan of Treatment Not on file documented as of this encounter Visit Diagnoses Not on filedocumented in this encounter Care Teams Forming Tube Selector Relationship Specialty Start Date End Date Gris Castillo MD PCP - General Internal Medicine 11/09/19 1 Verna Joseph MD PCP - General Family Practice 01/26/21 01/05/22 Piter Boyd MD [address] [place] [address] PCP - General Internal Medicine 01/06/22 documented as of this encounter
--- OUTSIDE RECORDS SUMMARY | 2025-02-05 16:50 | XMS_ITS | Encounter Summary ---
Author Organization [facility] Prior to 12/23/2023 Address [address] [place] [address] Care Team Providers Care Momd Teacher Name Role Phone Verna Joseph MD Primary Care Provider Aries Boyd Ch MD Primary Care Provider [phone] [phone] Encounter Details Date Type Department Care Team Description 01/30/2021 Telephone Medicine/Pediatrics - [address] [phone] Darrick Walls PA-C Social History Tobacco Use Types Packs/Day Years [...] have Coronavirus / COVID-19? No / Unsure 01/30/2021 8:47 AM EST documented as of this encounter Miscellaneous Notes * Telephone Encounter - Darrick Walls PA-C - 01/30/2021 9:23 AM EST Can we change her Covid 19 records and healthcare maintenance as they are currently listed as [place] and she received [facility]. Thank you documented in this encounter Plan of Treatment Not on file documented as of this encounter Visit Diagnoses Not on filedocumented in this encounter Care Teams Momd Teacher Relationship Specialty Start Date End Date Verna Joseph MD PCP - General Family Practice 01/26/21 01/05/22 Piter Boyd MD [address] [place] [address] PCP - General Internal Medicine 01/06/22 documented as of this encounter
--- OUTSIDE RECORDS SUMMARY | 2025-02-05 16:50 | XMS_ITS | Encounter Summary ---
Author Organization [facility] Prior to 12/23/2023 Address [address] [place] [address] Care Team Providers Care Lease Examiner Name Role Phone Piter Boyd MD Primary Care Provider [phone] Encounter Details Date Type Department Care Team Description 06/02/2022 Telephone Radiology - [place] [address] [place] [address] Piter Boyd MD [address] [place] [address] Social History Tobacco Use Types Packs/Day Years [...] on filedocumented in this encounter Care Teams Lease Examiner Relationship Specialty Start Date End Date Piter Boyd MD [address] [place] [address] PCP - General Internal Medicine 01/06/22 documented as of this encounter
--- OUTSIDE RECORDS SUMMARY | 2025-02-05 16:50 | XMS_ITS | Encounter Summary ---
Author Organization [facility] Prior to 12/23/2023 Address [address] [place] [address] Care Team Providers Care Resistance Welding Machine Operator Name Role Skip TenderBenitez Loo MD Primary Care Provider Gris Vora MD Primary Care Provider Verna Boyce MD Primary Care Provider Aries Boyd Ch MD Primary Care Provider [phone] [phone] Encounter Details Date Type Department Care Team Description 06/28/2016 Telephone Radiology - [address] [address] Benitez Loo MD Social History Tobacco Use Types Packs/Day Years Used Date Smoking Tobacco: Never Smokeless Tobacco: Never Alcohol Use Standard Drinks/Week Comments Yes 0 (1 standard drink = 0.6 oz pur e alcohol) Sex Assigned at Date Recorded Not on file Job Start Date Occupation Industry Not on file Not on file Not on file documented as of this encounter Miscellaneous Notes * Telephone Encounter - Nito Abraham - 06/29/2016 8:12 AM EDT [place] Auth # [id number] 06/29/16 - 08/13/16 * Telephone Encounter - Julio Goins - 06/28/2016 4:54 PM EDT Requesting prior authorization for an echocardiogram. Thank you documented in this encounter Plan of Treatment Not on file documented as of this encounter Visit Diagnoses Not on filedocumented in this encounter Care Teams Resistance Welding Machine Operator Relationship Specialty Start Date End Date Benitez Loo MD PCP - General Internal Medicine 06/13/12 11/08/19 Gris Castillo MD PCP - General Internal Medicine 11/09/19 1 Verna Joseph MD PCP - General Family Practice 01/26/21 01/05/22 Piter Boyd MD [facility] [place] [address] PCP - General Internal Medicine 01/06/22 documented as of this encounter
--- OUTSIDE RECORDS SUMMARY | 2025-02-05 16:51 | XMS_ITS | Encounter Summary ---
Author Organization [facility] Prior to 12/23/2023 Address [address] [place] [address] Care Team Providers Care Firewall Engineer Name Role Territory Sales ConsultantBenitez Loo MD Primary Care Provider Gris Vora MD Primary Care Provider Verna Boyce MD Primary Care Provider Aries Boyd Ch MD Primary Care Provider [phone] Encounter Details Date Type Department Care Team Description 09/19/2012 Night Triage Doc Medical Records [address] [place] [address] Abstract, Provider Social History Tobacco Use Types [...] on filedocumented in this encounter Care Teams Firewall Engineer Relationship Specialty Start Date End Date Benitez Loo MD PCP - General Internal Medicine 06/13/12 11/08/19 Gris Castillo MD PCP - General Internal Medicine 11/09/19 1 Verna Joseph MD PCP - General Family Practice 01/26/21 01/05/22 Piter Boyd MD [address] [place] [address] PCP - General Internal Medicine 01/06/22 documented as of this encounter
--- OUTSIDE RECORDS SUMMARY | 2025-02-05 16:51 | XMS_ITS | Clinical Summary ---
Author Organization [facility] Address [address] [place] [address] Care Team Providers Care Wood Stainer Name Role Phone Elena Boyd MD Primary [...] of gallbladder 10/10/2019 L1 vertebral fracture 08/21/2018 Overview (12/20/2023): Kyphoplasty 05/23/18 Snoring 05/06/2016 [...] Encounters Date Type Department Care Team Description 01/25/2025 Telephone [facility] - [facility] [address] [place] [phone] Elena Dunham MD 12/13/2024 11:00 AM EDT Consult Plastic & Reconstructive Surgery - [place] [address] [place] [phone] Lois Short PA Macromastia (Primary Dx); Chronic neck and back pain; Intertrigo 11/21/2024 3:45 PM EDT Consult [facility] - [place] [address] [place] [phone] Aissatou Francisco MD Mastalgia (Primary Dx); Ptosis of both breasts; Weight loss 11/15/2024 11:00 AM EDT Treatment Outpatient Rehabilitation - [address] [phone] Bea Millan GENERAL TELLER Upper back pain (Primary Dx); Neck pain; Chronic bilateral low back pain without sciatica; Large breasts; Chronic pain of both shoulders; Closed fracture of first lumbar vertebra, unspecified fracture morphology, sequela; History of compression fracture of spine 11/13/2024 11:00 AM EDT Treatment Outpatient Rehabilitation - [address] [phone] Bea Millan GENERAL TELLER Upper back pain (Primary Dx); Neck pain; Chronic bilateral low back pain without sciatica; Large breasts; Chronic pain of both shoulders 11/09/2024 10:00 AM EDT Treatment Outpatient Rehabilitation - [address] [phone] Bea Millan, GENERAL TELLER Upper back pain (Primary Dx); Neck pain; Chronic bilateral low back pain without sciatica; Large breasts; Chronic pain of both shoulders 11/07/2024 3:00 PM EDT Treatment Outpatient [facility] - [address] [phone] Bea Millan, GENERAL TELLER Upper back pain (Primary Dx); Neck pain; Chronic bilateral low back pain without sciatica; Large breasts; Chronic pain of both shoulders; Closed fracture of first lumbar vertebra, unspecified fracture morphology, sequela; History of compression fracture of spine from Last 3 Months Immunizations Immunization Administration Dates Next Due Hep B, Unspecified 08/21/2012 Influenza Quadravalent, MDCK , 0.5ml, preservative free (Flucelvax) 6mo and older 12/09/2022,11/03/2021,04/27/2021 Influenza trivalent, 0.5mL, preservative free (Fluarix; FluLaval; Fluzone) ages 6mo and older (Afluria) 3 years and older 03/14/2014 Influenza trivalent, with pr eservative (Fluzone; Afluria) 6mo and older 03/14/2014 [employer] SARS-CoV-2 COVID -19, vector-nr, rS-Ad26, preservative free 06/30/2020,06/09/2020 Measles 08/21/2012 Meningococcal MCV4P 03/20/2014 Mumps 08/21/2012 PPD Test 03/20/2014 [employer] SARS-CoV-2 COVID-19, mRNA, LNP-S, preservative free 06/30/2020,06/09/2020 [...] Health Maintenance Due Date Last Done Comments Drug Screen 1990 Non-Opioid Controlled Substance Agreement 1990 Hepatitis B Vaccines (2 of 3 - 19+ 3-dose series) 09/18/2012 08/21/2012 HPV Vaccines (1 - 3-dose SCDM series) 2017 HIV Screening 08/16/2019 Hepatitis C Screening 08/16/2019 Social Influencers of Health Screening 08/16/2019 Depression Screening 02/22/2024 01/06/2023 COVID-19 Vaccine ( season) 2024 06/30/2020, 06/30/2020, 06/09/2020, Additional history exists Influenza Vaccine (#1) 2024 , 11/03/2021, 04/27/2021, Additional history exists Cervical Cancer [...] Procedure Name Priority Date/Time Associated Diagnosis Comments LIPID PANEL WITH REFLEX TO DIRECT LDL Routine 07/04/2024 8:14 AM EDT History of obesity Mixed hyperlipidemia DEPRESSION SCREENING Routine 01/06/2023 HPV Routine 11/13/2020 from Last 3 Months or Most Recently Relevant to Health Maintenance Results * (ABNORMAL) Lipid panel with reflex to direct LDL (07/04/2024 8:14 AM EDT) Cholesterol 190 0 - 200 mg/dL LAB CHEMISTRY METHOD 07/04/2024 11:20 AM [facility] Triglycerides 92 0 - 150 mg/dL LAB CHEMISTRY METHOD 07/04/2024 11:20 AM [facility] HDL 51 >=40 mg/dL LAB CHEMISTRY METHOD 07/04/2024 11:20 AM [facility] LDL Calculated 121(H) 0 - 100 mg/dL LAB CHEMISTRY METHOD 07/04/2024 11:20 AM [facility] VLDL Cholesterol Shan 18.4 mg/dL LAB CHEMISTRY METHOD 07/04/2024 11:20 AM [facility] Non HDL Chol. (LDL+VLDL) 139 <145 mg/dL LAB CHEMISTRY METHOD 07/04/2024 11:20 AM [facility] Chol/HDL Ratio 3.7 0.0 - 4.4 LAB CHEMISTRY METHOD 07/04/2024 11:20 AM [facility] Blood Venous blood specimen / Unknown Venipuncture / Unknown 07/04/2024 8:14 AM EDT 07/04/2024 8:14 AM EDT Carl DELGADO LAB BLOOD ORDERABLES Final Res ult [facility] [address] [place] [address], [place] [phone] * Depression Screening (01/06/2023) Pathologist [facility] Depression Screening Abstracted Historical Provider HEALTH MAINTENANCE Final Result * Cervical Cancer Screening: HPV (11/13/2020) Pathologist [facility] Cervical Cancer Screening: HPV No [...] currently active code status orders. Care Teams Wood Stainer Relationship Specialty Start Date End Date Elena Boyd MD [address] [place] [address] PCP - General 01/06/22
--- OUTSIDE RECORDS SUMMARY | 2025-02-05 16:51 | XMS_ITS | Patient Health Record ---
Author Organization [facility] Address [address] [place] [address] Care Team Providers Care Track Walker Name Role Phone JESENIA BLUE Unavailable [phone] Allergies Allergen (clinical drug ingredient) Drug/Non Drug [...] Date End Date Status Mounjaro 5 MG/0.5ML Solution Pen-injector 5mg Subcutaneous weekly; Duration: 30 days 09/30/2022 Active Metoclopramide HCl 5 MG Tablet TAKE ONE TABLET BY MOUTH EVERY DAY BEFORE MEALS NEEDED FOR NAUSEA AND VOMITING Oral; Duration: 10 Active Fluconazole 150 MG Tablet TAKE 1 TABLET BY MOUTH ONCE A WEEK FOR 12 DOSES Oral; Duration: 28 Active Wegovy 1.7 MG/0.75ML Solution Auto-injector inject 1.7mg Subcutaneous once a week; Duration: 30 days 10/04/2022 Active Mounjaro 2.5 MG/0.5ML Solution Pen-injector 2.5mg Subcutaneous weekly; Duration: 30 days Active Ondansetron 4 MG Tablet Disintegrating 1 tablet on the tongue and allow to dissolve prn nausea Orally Once a day; Duration: 30 day(s) Active Jlxifgmkgx-ZXXM-Xtubugca 50-325-40 MG Tablet TAKE 2 TABLETS BY MOUTH DAILY NEEDED FOR HEADACHE Oral; Duration: 3 Active Cetirizine HCl 10 MG Capsule 1 capsule Orally Once a day Active Social History Tobacco Use: Social History Observation Description Date Details (start date - stop date) Never Smoker NA - NA Social History Drugs/Alcohol: Social Info Question Answer Notes Alcohol Screen (Audit-C) Did you have a drink containing alcohol in the past year? Yes How often did you have a drink containing alcohol in the past year? Monthly or less (1 point) Points 1 Interpretation Negative Drugs Have you used drugs other than those for medical reasons in the past 12 months? No Tobacco Use: Social Info Question Answer Notes Tobacco Use/Smoking Are you a nonsmoker Problems Problem Type SNOMED Code ICD Code Onset Dates Problem Status W/U Status Risk Notes Problem Obesity due to excess calories (137415308) Other obesity due to excess calories (E66.09) Active confirmed Problem Body mass index 35.00 to 39.99 (8348018928892 05) Body mass index [BMI] 37.0-37.9, adult (Z68.37) Active confirmed Plan Of Treatment No Information Insurance Providers Payer Name Payer Address Payer Phone Subscriber Number Group Number Insured Name Patient Relationship to Insured Coverage Start Date Coverage End Date [employer] [address] [address] [place] [address] [id number] [phone] Silvia Leone Self - patient is the insured Medical (General) History Medical History History ICD Code hypercholesterolemia headache weight gain Surgical History Surgery Date(Month/Year) wisdom teeth extraction vertebroplasty
--- OUTSIDE RECORDS SUMMARY | 2025-02-05 16:51 | XMS_ITS | Encounter Summary ---
Author Organization [facility] Prior to 12/23/2023 Address [address] [place] [address] Care Team Providers Care Chief Estimator Name Role Jewelry Sales CoordinatorBenitez Loo MD Primary Care Provider Gris Vora MD Primary Care Provider Verna Boyce MD Primary Care Provider Aries Boyd Ch MD Primary Care Provider [phone] Reason for Visit * Reason Onset Date Comments Advice 05/02/2017 Encounter Details Date Type Department Care Team Description 05/02/2017 Pt. Non Urgent Medical Question Medicine/Pediatrics - [address] [address] Benitez Loo MD Social History Tobacco Use [...] this encounter Progress Notes * Adrianna Steele L.P.NKyra - 05/02/2017 4:53 PM EDTFrom: Silvia Leone To: Benitez Loo MD Sent: 05/02/2017 4:52 PM EDT Subject: Silvia Zaragoza, I went a few months back to get my athletes foot checked out. It went away a little bit but my foot is still very itchy. I noticed last night i have a wart on my toe and below my toes. I renewed my prescription for an anti fungal cream im not sure if that will help or if i should come in. documented in this encounter Plan of Treatment Not on file documented as of this encounter Visit Diagnoses Not on filedocumented in this encounter Care Teams Chief Estimator Relationship Specialty Start Date End Date Benitez Loo MD PCP - General Internal Medicine 06/13/12 11/08/19 Gris Castillo MD PCP - General Internal Medicine 11/09/19 1 Verna Joseph MD PCP - General Family Practice 01/26/21 01/05/22 Piter Boyd MD [address] [place] [address] PCP - General Internal Medicine 01/06/22 documented as of this encounter
--- OUTSIDE RECORDS SUMMARY | 2025-02-05 16:51 | XMS_ITS | Encounter Summary ---
Author Organization [employer] [facility] Prior to 12/23/2023 Address [address] [place] [address] Care Team Providers Care Harness Inspector Name Role Food Production AssociateBenitez Loo MD Primary Care Provider Gris Vora MD Primary Care Provider Verna Boyce MD Primary Care Provider Aries Boyd Ch MD Primary Care Provider [phone] [phone] Encounter Details Date Type Department Care Team Description 05/24/2018 Orders Only Medical Records [address] [place] [address] Benitez Loo MD Social History Tobacco Use [...] on file documented as of this encounter Procedures Procedure Name Priority Date/Time Associated Diagnosis Comments OUTSIDE IMAGING Routine 05/23/2018 documented in this encounter Results * OUTSIDE IMAGING (05/23/2018) Benitez Loo MD RADIOLOGY documented in this encounter Visit Diagnoses Not on filedocumented in this encounter Care Teams Harness Inspector Relationship Specialty Start Date End Date Benitez Loo MD PCP - General Internal Medicine 4/23/13 9/17/20 Gris Castillo MD PCP - General Internal Medicine 11/09/19 1 Verna Joseph MD PCP - General Family Practice 01/26/21 01/05/22 Piter Boyd, [address] [place] [address] [place] [address] PCP - General Internal Medicine 01/06/22 documented as of this encounter
--- OUTSIDE RECORDS SUMMARY | 2025-02-05 16:51 | XMS_ITS | Encounter Summary ---
Author Organization [facility] Prior to 12/23/2023 Address [address] [place] [address] Care Team Providers Care Recyclable Materials Sorter Name Role Servicing RepBenitez Loo MD Primary Care Provider Gris Vora MD Primary Care Provider Verna Boyce MD Primary Care Provider Aries Boyd Ch MD Primary Care Provider [phone] [phone] Reason for Visit * Reason Onset Date Comments Advice 02/06/2017 Encounter Details Date Type Department Care Team Description 02/06/2017 Pt. Non Urgent Medical Question Medicine/Pediatrics - [address] [address] Benitez Loo MD Social History Tobacco Use [...] of this encounter Progress Notes * Adrianna CandelariaPKyraNKyra - 02/07/2017 7:48 AM ESTFrom: Silvia Leone To: Benitez Loo MD Sent: 02/06/2017 4:04 PM EST Subject: Silvia Leone I was seen a few weeks ago due to athletes foot and an infection on my foot. I completed the 10 dayantibiotic course. I haven???t seen any change my foot is still itchy swollen and red and now I???ve noticed blisters on between my toes. I???m going to start an over the counter Athletes foot spray to see if it helps over the night tonight. But please get back to me. documented in this encounter Plan of Treatment Not on file documented as of this encounter Visit Diagnoses Not on filedocumented in this encounter Care Teams Recyclable Materials Sorter Relationship Specialty Start Date End Date Benitez Loo MD PCP - General Internal Medicine 06/13/12 11/08/19 Gris Castillo MD PCP - General Internal Medicine 11/09/19 1 Verna Joseph MD PCP - General Family Practice 01/26/21 01/05/22 Piter Boyd MD [facility] [place] [address] PCP - General Internal Medicine 01/06/22 documented as of this encounter
--- OUTSIDE RECORDS SUMMARY | 2025-02-05 16:51 | XMS_ITS | Encounter Summary ---
Author Organization [facility] Address [address] [place] [address] Care Team Providers Care Grain Oilseed Or Pasture Farm Manager Name Role Phone Elena Boyd MD Primary Care Prov ider Reason for Visit * Reason Onset Date Comments CARDIAC REFERRAL 01/25/2025 Encounter Details Date Type Department Care Team (Late st Contact Info) Description 01/25/[address] [facility] Cardiology Associates [facility] [address] [facility] [address] [place] [phone] Elena Boyd MD [address] [place] [address] Social History Tobacco Use Types Packs/Day Years [...] Orientation Straight 02/06/2024 9: 35 AM EST documented as of this encounter Progress Notes * Kimmy Dillard - 01/31/2025 10:58 AM EST Second attempt. Left a message for patient to call back and schedule. documented in this encounter Plan of Treatment Scheduled Procedures Name Priority Associated Diagnoses Date/Ti me MAMMOPLASTY REDUCTION Macromastia Chronic neck and back pain Intertrigo documented as of this encounter Goals Goal Patient Goal Type Associated Problems Recent Progress Patient-Stated? Author Autogenerat ed Goal Care Plan Autogenerated Problem No Lois Short PA documented as of this encounter Visit Diagnoses Not on filedocumented in this encounter Additional Health Concerns Active Problems Noted Date Diagnosed Date Autogenerated Problem 12/17/2024 documented as of this encounter Care Teams Grain Oilseed Or Pasture Farm Manager Relationship Specialty Start Date End Date Elena Boyd MD [address] [place] [address] PCP - General 01/06/22 documented as of this encounter
--- OUTSIDE RECORDS SUMMARY | 2025-02-05 16:51 | XMS_ITS | Encounter Summary ---
Author Organization [facility] Prior to 12/23/2023 Address [address] [place] [address] Care Team Providers Care Diving Fisher Name Role Phone Piter Boyd MD Primary Care Provider [phone] [phone] Encounter Details Date Type Department Care Team Description 08/30/2023 Orders Only Adult Medicine - [place] [address] [place] [address] Carl Raymond PA-C [address] [place] [address] Social History Tobacco Use Types Packs/Day Years [...] on filedocumented in this encounter Care Teams Diving Fisher Relationship Specialty Start Date End Date Piter Boyd MD [address] [place] [address] PCP - General Internal Medicine 01/06/22 documented as of this encounter
--- OUTSIDE RECORDS SUMMARY | 2025-02-05 16:51 | XMS_ITS | Encounter Summary ---
Author Organization [facility] Prior to 12/23/2023 Address [address] [place] [address] Care Team Providers Care Zoning Engineer Name Role Rural Mail CarrierBenitez Loo MD Primary Care Provider Gris Voar MD Primary Care Provider Verna Boyce MD Primary Care Provider Aries Boyd Ch MD Primary Care Provider [phone] [phone] Encounter Details Date Type Department Care Team Description 06/23/2012 Night Triage Doc Medical Records [address] [place] [address] Abstract, Provider Social History Tobacco Use Types [...] on filedocumented in this encounter Care Teams Zoning Engineer Relationship Specialty Start Date End Date Benitez Loo MD PCP - General Internal Medicine 06/13/12 11/08/19 Gris Castillo MD PCP - General Internal Medicine 11/09/19 1 Verna Joseph MD PCP - General Family Practice 01/26/21 01/05/22 Piter Boyd MD [address] [place] [address] PCP - General Internal Medicine 01/06/22 documented as of this encounter
--- OUTSIDE RECORDS SUMMARY | 2025-02-05 16:51 | XMS_ITS | Encounter Summary ---
Author Organization [facility] Prior to 12/23/2023 Address [address] [place] [address] Care Team Providers Care Orthotist Name Role Roll HandlerBenitez Loo MD Primary Care Provider Gris Vora MD Primary Care Provider Verna Boyce MD Primary Care Provider Aries Boyd Ch MD Primary Care Provider [phone] Encounter Details Date Type Department Care Team Description 03/15/2016 Pt. Non Urgent Medical Question Medicine/Pediatrics - [address] [phone] Benitez Loo MD Social History Tobacco Use [...] as of this encounter Progress Notes * Falguni Reis M.A. - 03/15/2016 9:24 AM ESTFrom: Silvia Leone To: Benitez Loo MD Sent: 03/15/2016 9:23 AM EST Subject: Silvia Zaragoza, I need a doctors note stating i have anxiety for my school. Thank you. Silvia Leone documented in this encounter Plan of Treatment Not on file documented as of this encounter Visit Diagnoses Not on filedocumented in this encounter Care Teams Orthotist Relationship Specialty Start Date End Date Benitez Loo MD PCP - General Internal Medicine 06/13/12 11/08/19 Gris Castillo MD PCP - General Internal Medicine 11/09/19 Verna Joseph MD PCP - General Family Practice 01/26/21 01/05/22 Piter Boyd MD [address] [place] [id number] PCP - General Internal Medicine 01/06/22 documented as of this encounter
--- OUTSIDE RECORDS SUMMARY | 2025-02-05 16:51 | XMS_ITS | Encounter Summary ---
Author Organization [facility] Prior to 12/23/2023 Address [address] [place] [address] Care Team Providers Care Label Stamper Name Role Phone Gris Castillo MD Primary Care Provider Verna Boyce MD Primary Care Provider Aries Boyd Ch MD Primary Care Provider [phone] Encounter Details Date Type Department Care Team Description 01/07/2020 Pt. Non Urgent Medical Question Gastroenterology - [address] [place] [id number] Shannon Foster MD [address] [place] [id number] Social History Tobacco Use Types Packs/Day Years [...] encounter Miscellaneous Notes * Telephone Encounter - Padmini Og M.A. - 01/07/2020 2:25 PM ESTFrom: Silvia Leone To: Diego Foster MD Sent: 01/07/2020 2:20 PM EST Subject: Follow up appointment Nik, I need to make a follow up appointment for 6 months. I usually have open availability on Fridays or anytime in the morning. documented in this encounter Plan of Treatment Not on file documented as of this encounter Visit Diagnoses Not on filedocumented in this encounter Care Teams Label Stamper Relationship Specialty Start Date End Date Gris Castillo MD PCP - General Internal Medicine 11/09/19 1 Verna Joseph MD PCP - General Family Practice 01/26/21 01/05/22 Piter Boyd MD [address] [place] [id number] PCP - General Internal Medicine 01/06/22 documented as of this encounter
--- OUTSIDE RECORDS SUMMARY | 2025-02-05 16:51 | XMS_ITS | Encounter Summary ---
Author Organization [facility] Prior to 12/23/2023 Address [address] [place] [address] Care Team Providers Care Power Machine Operator Name Role Phone Venra Joseph MD Primary Care Provider Aries Boyd Ch MD Primary Care Provider [phone] Reason for Visit * Reason Onset Date Comments Prior Authorization 02/23/2021 [facility] Encounter Details Date Type Department Care Team Description 02/23/2021 Telephone Internal Medicine - [address], [address] [place] [address] Gilles Coats PA-C Prior Authorization ([facility]) Social History Tobacco Use Types Packs/Day Years Used Date Smoking Tobacco: Never Smokeless Tobacco: Never Alcohol Use Standard Drinks/Week Comments Yes 0 (1 standard drink = 0.6 oz pur e alcohol) one on [facility] Sex Assigned at Date Recorded Not on file Job Start Date Occupation Industry Not on file Not on file Not on file COVID-19 Exposure Response Date Recorded In the last month, have you been in contact with someone who was confirmed or suspected to have Coronavirus / COVID-19? No / Unsure 02/23/2021 2:22 PM EST documented as of this encounter Miscellaneous Notes * Telephone Encounter - Rita Crockettregard - 02/23/2021 3:26 PM EST Forwarded order to [facility]. They will obtain auth and call patient to schedule appointment documented in this encounter Plan of Treatment Not on file documented as of this encounter Visit Diagnoses Not on filedocumented in this encounter Care Teams Power Machine Operator Relationship Specialty Start Date End Date Verna Joseph MD PCP - General Family Practice 01/26/21 01/05/22 Piter Boyd MD [address] [place] [id number] PCP - General Internal Medicine 01/06/22 documented as of this encounter
--- OUTSIDE RECORDS SUMMARY | 2025-02-05 16:51 | XMS_ITS | Encounter Summary ---
Author Organization [facility] Prior to 12/23/2023 Address [address] [place] [address] Care Team Providers Care Biomedical Engineering Supervisor Name Role Phone Verna Joseph MD Primary Care Provider Aries Boyd Ch MD Primary Care Provider [phone] Encounter Details Date Type Department Care Team Description 04/27/2021 Disaster Recovery Specialist Report Medical Records [address] [place] [id number] Satcie Echavarria MD Social History Tobacco Use Types Packs/Day [...] have Coronavirus / COVID-19? No / Unsure 04/29/2021 1:44 PM EST documented as of this encounter Plan of Treatment Not on file documented as of this encounter Visit Diagnoses Not on filedocumented in this encounter Care Teams Biomedical Engineering Supervisor Relationship Specialty Start Date End Date Verna Joseph MD PCP - General Family Practice 01/26/21 01/05/22 Piter Boyd, [address] [place], [place] [id number] PCP - General Internal Medicine 01/06/22 documented as of this encounter
== END 2025-02-05 13:12 | disposition home or self-care (01) ==
LOC: HO.HPHYS 12:56
PROVIDERS: PCP Internal Medicine; Visit Provider Physical Medicine & Rehabilitation
DX: M47.816 Spondylosis without myelopathy or radiculopathy, lumbar region (principal)
CPT/HCPCS: 99213; G2211